=== PATIENT | female | born 1965 | race American Indian/Alaskan Native ===

== ENCOUNTER 2017-10-02 20:03 | Inpatient (IN) | payer OTHER ==
[2017-10-02] MEDS ORDERED: NACL 0.9% 500 ML 500 ML IV ONE (20:11)
[2017-10-02] MEDS ORDERED: NACL 0.9% 1000 ML 2,000 ML IV ONE (20:39)
[2017-10-02] MEDS ORDERED: ZOVIRAX 800 MG in NACL 0.9% 100 ML IV STA (20:40)
[2017-10-02] MEDS ORDERED: DECADRON IV ONE (20:40)
[2017-10-02] MEDS ORDERED: VANCOMYCIN VIAL IV ONE (20:40)
[2017-10-02] MEDS ORDERED: cefTRIAXone 2 GM in NACL 0.9% 20 ML IV ONE (20:40)
[2017-10-02] MEDS ORDERED: ATIVAN IV ONE (20:40)
--- NOTE | 2017-10-02 20:43 | Emergency Department Report ---
ED General Adult HPI - General Chief complaint: Fever Stated complaint: AMS Time Seen by Provider: 10/02/17 20:32 Source: EMS (ems notes not available at time of chart dictation), RN notes reviewed Mode of arrival: Stretcher Limitations: Altered Mental Status - History of Present Illness Initial comments: This is a 52-year-old female, unknown to this provider previously, brought to the hospital by EMS for complaint of altered mental status. EMS staff not available for history. No family available for history or collateral information. Patient altered, he cannot describe exacerbating or relieving factors. The patient is awake, does not speak, does not follow commands, and occasionally moans when she is examined. Medications include lorazepam and Risperdal. -: unknown Radiation: other (per hpi) Quality: other (per hpi) Consistency: other (per hpi) Improves with: other (per hpi) Worsens with: other (per hpi) Associated Symptoms: other (per hpi) Treatments Prior to Arrival: other (per hpi) - Related Data Home Medications Medication Instructions Recorded Confirmed Last Taken LORazepam [Ativan] 1 mg PO TID 10/02/17 10/02/17 Unknown risperiDONE [Risperdal] 2 mg PO BID 10/02/17 10/02/17 Unknown Allergies Allergy/AdvReac Type Severity Reaction Status Date / Time Unable to Assess Allergy Unverified 10/02/17 20:11 ED Review of Systems ROS: Stated complaint: AMS Other details as noted in HPI Comment: Unobtainable due to pts medical conditions ED Past Medical Hx - Past Medical History Hx Psychiatric Treatment: Yes (schizephronia, bipolar) - Surgical History Past Surgical History?: No - Social History Smoking Status: Never Smoker - Medications Home Medications: Home Medications Medication Instructions Recorded Confirmed Last Taken Type LORazepam [Ativan] 1 mg PO TID 10/02/17 10/02/17 Unknown History risperiDONE [Risperdal] 2 mg PO BID 10/02/17 10/02/17 Unknown History ED Physical Exam - General Limitations: Altered Mental Status General appearance: lethargic - Head Head exam: Present: atraumatic, normocephalic - Eye Eye exam: Present: PERRL - ENT ENT exam: Present: mucous membranes dry - Neck Neck exam: Present: normal inspection. Absent: tenderness, meningismus - Respiratory Respiratory exam: Absent: respiratory distress, wheezes, rales, rhonchi, stridor - Cardiovascular Cardiovascular Exam: Present: normal rhythm, tachycardia, normal heart sounds - GI/Abdominal GI/Abdominal exam: Present: soft, normal bowel sounds. Absent: distended, tenderness, guarding, rebound, rigid, pulsatile mass - Rectal Rectal exam: Present: normal inspection - Extremities Exam Extremities exam: Absent: normal inspection, tenderness, pedal edema, calf tenderness, other (compartments are soft. 2+ pulses noted in the upper, lower extremities. There is no clonus in the lower extremities. There is hyperreflexia in the upper and lower extremities. On the left lateral thigh, proximally, there is an area of tenderness and erythema, 4 x 6 cm, possible induration, no obvious abscess or fluctuance) ED Course Vital Signs 10/02/17 10/02/17 10/02/17 19:58 20:00 20:06 Temperature 99.9 F H Temperature [ Intra-Procedure ] Temperature [ Post-Procedure] Temperature [ Pre-Procedure] Pulse Rate 137 H 138 H 146 H Pulse Rate [ Intra-Procedure ] Pulse Rate [ Post-Procedure] Pulse Rate [Pre -Procedure] Respiratory 19 14 24 Rate Respiratory Rate [Intra- Procedure] Respiratory Rate [Post- Procedure] Respiratory Rate [Pre- Procedure] Blood Pressure 156/105 142/112 Blood Pressure [Intra- Procedure] Blood Pressure [Pre-Procedure] O2 Sat by Pulse Oximetry O2 Sat by Pulse Oximetry [ Intra-Procedure ] O2 Sat by Pulse Oximetry [Post -Procedure] O2 Sat by Pulse Oximetry [Pre- Procedure] 10/02/17 10/02/17 10/02/17 20:10 20:15 20:30 Temperature Temperature [ Intra-Procedure ] Temperature [ Post-Procedure] Temperature [ Pre-Procedure] Pulse Rate 132 H 135 H Pulse Rate [ Intra-Procedure ] Pulse Rate [ Post-Procedure] Pulse Rate [Pre -Procedure] Respiratory 22 15 15 Rate Respiratory Rate [Intra- Procedure] Respiratory Rate [Post- Procedure] Respiratory Rate [Pre- Procedure] Blood Pressure 159/100 159/98 Blood Pressure [Intra- Procedure] Blood Pressure [Pre-Procedure] O2 Sat by Pulse Oximetry O2 Sat by Pulse Oximetry [ Intra-Procedure ] O2 Sat by Pulse Oximetry [Post -Procedure] O2 Sat by Pulse Oximetry [Pre- Procedure] 10/02/17 10/02/17 10/02/17 20:40 20:45 21:00 Temperature Temperature [ Intra-Procedure ] Temperature [ Post-Procedure] Temperature [ Pre-Procedure] Pulse Rate 135 H 138 H Pulse Rate [ Intra-Procedure ] Pulse Rate [ Post-Procedure] Pulse Rate [Pre -Procedure] Respiratory 13 13 Rate Respiratory Rate [Intra- Procedure] Respiratory Rate [Post- Procedure] Respiratory Rate [Pre- Procedure] Blood Pressure 134/94 127/92 Blood Pressure [Intra- Procedure] Blood Pressure [Pre-Procedure] O2 Sat by Pulse 98 Oximetry O2 Sat by Pulse Oximetry [ Intra-Procedure ] O2 Sat by Pulse Oximetry [Post -Procedure] O2 Sat by Pulse Oximetry [Pre- Procedure] 10/02/17 10/02/17 10/02/17 21:10 21:15 21:43 Temperature 98.4 F Temperature [ Intra-Procedure ] Temperature [ Post-Procedure] Temperature [ Pre-Procedure] Pulse Rate 140 H Pulse Rate [ Intra-Procedure ] Pulse Rate [ Post-Procedure] Pulse Rate [Pre -Procedure] Respiratory 18 Rate Respiratory Rate [Intra- Procedure] Respiratory Rate [Post- Procedure] Respiratory Rate [Pre- Procedure] Blood Pressure 133/97 Blood Pressure [Intra- Procedure] Blood Pressure [Pre-Procedure] O2 Sat by Pulse 100 100 Oximetry O2 Sat by Pulse Oximetry [ Intra-Procedure ] O2 Sat by Pulse Oximetry [Post -Procedure] O2 Sat by Pulse Oximetry [Pre- Procedure] 10/02/17 10/02/17 10/02/17 22:45 22:57 23:01 Temperature Temperature [ Intra-Procedure ] Temperature [ Post-Procedure] Temperature [ 98.4 F Pre-Procedure] Pulse Rate 141 H 140 H Pulse Rate [ Intra-Procedure ] Pulse Rate [ Post-Procedure] Pulse Rate [Pre 145 H -Procedure] Respiratory 12 19 Rate Respiratory Rate [Intra- Procedure] Respiratory Rate [Post- Procedure] Respiratory 16 Rate [Pre- Procedure] Blood Pressure 132/90 117/68 Blood Pressure [Intra- Procedure] Blood Pressure 132/90 [Pre-Procedure] O2 Sat by Pulse Oximetry O2 Sat by Pulse Oximetry [ Intra-Procedure ] O2 Sat by Pulse Oximetry [Post -Procedure] O2 Sat by Pulse 100 Oximetry [Pre- Procedure] 10/02/17 10/02/17 10/02/17 23:05 23:10 23:15 Temperature Temperature [ 98.2 F 98.2 F 98.2 F Intra-Procedure ] Temperature [ Post-Procedure] Temperature [ Pre-Procedure] Pulse Rate 136 H Pulse Rate [ 132 H 129 H 131 H Intra-Procedure ] Pulse Rate [ Post-Procedure] Pulse Rate [Pre -Procedure] Respiratory 13 Rate Respiratory 13 13 14 Rate [Intra- Procedure] Respiratory Rate [Post- Procedure] Respiratory Rate [Pre- Procedure] Blood Pressure 131/84 Blood Pressure 123/68 112/58 131/84 [Intra- Procedure] Blood Pressure [Pre-Procedure] O2 Sat by Pulse Oximetry O2 Sat by Pulse 100 100 100 Oximetry [ Intra-Procedure ] O2 Sat by Pulse Oximetry [Post -Procedure] O2 Sat by Pulse Oximetry [Pre- Procedure] 10/02/17 10/02/17 10/02/17 23:30 23:43 23:45 Temperature Temperature [ Intra-Procedure ] Temperature [ 98.4 F Post-Procedure] Temperature [ Pre-Procedure] Pulse Rate 122 H 122 H 122 H Pulse Rate [ Intra-Procedure ] Pulse Rate [ 122 H Post-Procedure] Pulse Rate [Pre -Procedure] Respiratory 12 15 15 Rate Respiratory Rate [Intra- Procedure] Respiratory 13 Rate [Post- Procedure] Respiratory Rate [Pre- Procedure] Blood Pressure 123/71 106/66 107/65 Blood Pressure [Intra- Procedure] Blood Pressure [Pre-Procedure] O2 Sat by Pulse Oximetry O2 Sat by Pulse Oximetry [ Intra-Procedure ] O2 Sat by Pulse 100 Oximetry [Post -Procedure] O2 Sat by Pulse Oximetry [Pre- Procedure] 10/03/17 10/03/17 10/03/17 00:01 00:16 00:31 Temperature Temperature [ Intra-Procedure ] Temperature [ Post-Procedure] Temperature [ Pre-Procedure] Pulse Rate 118 H 128 H 121 H Pulse Rate [ Intra-Procedure ] Pulse Rate [ Post-Procedure] Pulse Rate [Pre -Procedure] Respiratory 12 17 12 Rate Respiratory Rate [Intra- Procedure] Respiratory Rate [Post- Procedure] Respiratory Rate [Pre- Procedure] Blood Pressure 120/81 120/81 129/85 Blood Pressure [Intra- Procedure] Blood Pressure [Pre-Procedure] O2 Sat by Pulse Oximetry O2 Sat by Pulse Oximetry [ Intra-Procedure ] O2 Sat by Pulse Oximetry [Post -Procedure] O2 Sat by Pulse Oximetry [Pre- Procedure] 10/03/17 00:45 Temperature 97.5 F L Temperature [ Intra-Procedure ] Temperature [ Post-Procedure] Temperature [ Pre-Procedure] Pulse Rate 123 H Pulse Rate [ Intra-Procedure ] Pulse Rate [ Post-Procedure] Pulse Rate [Pre -Procedure] Respiratory 11 L Rate Respiratory Rate [Intra- Procedure] Respiratory Rate [Post- Procedure] Respiratory Rate [Pre- Procedure] Blood Pressure 122/73 Blood Pressure [Intra- Procedure] Blood Pressure [Pre-Procedure] O2 Sat by Pulse 100 Oximetry O2 Sat by Pulse Oximetry [ Intra-Procedure ] O2 Sat by Pulse Oximetry [Post -Procedure] O2 Sat by Pulse Oximetry [Pre- Procedure] - Reevaluation(s) Reevaluation #1: 10/02/17 22:21 Differential diagnosis, including not limited to: Pneumonia, bacteremia, intra- abdominal infection, myositis, cellulitis, urinary tract infection, neuroleptic malignant syndrome, dehydration, rhabdomyolysis Assessment and plan: 52-year-old female apparently on Risperdal, with hyperreflexia, hypernatremia, tachycardia, leukocytosis, concerning for bacteremic infection versus side effect of medication. The patient will be aggressively treated for all of the aforementioned. No obvious source of infection is elucidated at this time, no family is available at this time for collateral information or history, given altered mental status leukocytosis and tachycardia, the patient will be treated empirically for community-acquired meningitis and encephalitis, and she will receive administrative consent from this provider for both a spinal tap and moderate sedation to acquire CSF. I will also discuss with the [place] [facility]. Nursing staff initially contacted them for recommendations, and the recommendations are appreciated. It is mild pain at the patient should have broad-spectrum antibiotics until bacteremia and meningitis can be ruled out. Reevaluation #2: 10/02/17 23:26 Patient is found to be hypernatremic, dehydrated, hypermagnesemic, and in rhabdomyolysis with a CK of 6000. CT scan of the brain is negative, CT scan of the abdomen and pelvis is negative, the case is rediscussed with the [place] [facility], Mr. Decker Giacomodorothy... [facility] agrees that neuroleptic malignant syndrome is the most likely diagnosis. They do not recommend bromocriptine at this time. They do recommend Ativan, fluids and supportive care. They will follow in consultation and as needed. Critical care physician on-call was paged. The hospital physician on callto arrange admission. Reevaluation #3: 10/02/17 23:31 d/w Dr Walsh, she agrees with placement to the intensive care unit. She will follow in consultation. Reevaluation #4: 10/02/17 23:36 dr irving accepts to her service - Lumbar Puncture Consent Obtained: emergent situation Time Out Performed: Yes Indication for Procedure: change in mental status Patient Position: left lateral decubitus Skin Prep: Povidone-Iodine 1% Local Anesthetic Used: Lidocaine 1% Amount of anesthesia used (mls): 10 Spinal Needle Gauge: Other (18 g) Spinal Needle Length: 3.5in Interspace Used: L4-L5 Fluid Initially Obtained: clear Complications: none Patient Tolerated Procedure: well - Moderate Sedation Indications: diagnostic imaging proced ASA Class: III Mallampati Airway Score: 2 Preparation: playground monitor applied, pulse oximeter, capnometry used, supplemental O2 applied, reversal agents at bedside, suction/airway equipment at bedside, IV secured IV Propofol Dose (mgs): 50 Complications: none Patient Tolerated Procedure: well Additional Comments: sedation time from 11 pm to 1113 pm. ED Medical Decision Making - Lab Data Result diagrams: 10/05/17 05:23 10/05/17 05:23 Vital Signs 10/02/17 10/02/17 10/02/17 19:58 20:00 20:06 Temperature 99.9 F H Pulse Rate 137 H 138 H 146 H Respiratory 19 14 24 Rate Blood Pressure 156/105 142/112 O2 Sat by Pulse Oximetry 10/02/17 10/02/17 10/02/17 20:10 20:15 20:30 Temperature Pulse Rate 132 H 135 H Respiratory 22 15 15 Rate Blood Pressure 159/100 159/98 O2 Sat by Pulse Oximetry 10/02/17 10/02/17 10/02/17 20:40 20:45 21:00 Temperature Pulse Rate 135 H 138 H Respiratory 13 13 Rate Blood Pressure 134/94 127/92 O2 Sat by Pulse 98 Oximetry 10/02/17 10/02/17 10/02/17 21:10 21:15 21:43 Temperature 98.4 F Pulse Rate 140 H Respiratory 18 Rate Blood Pressure 133/97 O2 Sat by Pulse 100 100 Oximetry Lab Results 10/02/17 10/02/17 10/02/17 Range/Units 20:05 20:26 20:26 WBC 17.1 H (4.5-11.0) K/mm3 RBC 4.19 (3.65-5.03) M/mm3 Hgb 12.9 (10.1-14.3) gm/dl Hct 39.5 (30.3-42.9) % MCV 94 (79-97) fl MCH 31 (28-32) pg MCHC 33 (30-34) % RDW 12.9 L (13.2-15.2) % Plt Count 475 H (140-440) K/mm3 Lymph % (Auto) 7.7 L (13.4-35.0) % [place] % (Auto) 7.6 H (0.0-7.3) % Eos % (Auto) 0.0 (0.0-4.3) % Baso % (Auto) 0.3 (0.0-1.8) % Lymph # 1.3 (1.2-5.4) K/mm3 [place] # 1.3 H (0.0-0.8) K/mm3 Eos # 0.0 (0.0-0.4) K/mm3 Baso # 0.0 (0.0-0.1) K/mm3 Seg Neutrophils % 84.4 H (40.0-70.0) % Seg Neutrophils # 14.5 H (1.8-7.7) K/mm3 ESR (0-20) mm/Hr PT 15.4 H (12.2-14.9) Sec. INR 1.16 H (0.87-1.13) VBG pH (7.320-7.420) Sodium (137-145) mmol/L Potassium (3.6-5.0) mmol/L Chloride (98-107) mmol/L Carbon Dioxide (22-30) mmol/L Anion Gap mmol/L BUN (7-17) mg/dL Creatinine (0.7-1.2) mg/dL Estimated GFR ml/min BUN/Creatinine Ratio % Glucose (65-100) mg/dL Lactic Acid (0.7-2.0) mmol/L Calcium (8.4-10.2) mg/dL Magnesium (1.7-2.3) mg/dL Total Bilirubin (0.1-1.2) mg/dL AST (5-40) units/L ALT (7-56) units/L Alkaline Phosphatase (35-129) units/L Total Creatine Kinase (30-135) units/L C-Reactive Protein (0.00-1.30) mg/dL Total Protein (6.3-8.2) g/dL Albumin (3.9-5) g/dL Albumin/Globulin Ratio % Urine Color Yellow (Yellow) Urine Turbidity Clear (Clear) Urine pH 5.0 (5.0-7.0) Ur Specific [place]urt 1.028 (1.003-1.030) Urine Protein >500 (Negative) mg/dL Urine Glucose (UA) 50 (Negative) mg/dL Urine Ketones 20 (Negative) mg/dL Urine Blood Mod (Negative) Urine Nitrite Neg (Negative) Urine Bilirubin Neg (Negative) Urine Urobilinogen < 2.0 (<2.0) mg/dL Ur Leukocyte Esterase Neg (Negative) Urine WBC (Auto) 8.0 H (0.0-6.0) /HPF Urine RBC (Auto) 3.0 (0.0-6.0) /HPF U Epithel Cells (Auto) 1.0 (0-13.0) /HPF Urine Bacteria (Auto) 1+ (Negative) /HPF Granular Casts 3 /LPF Urine Mucus 2+ /HPF Salicylates (2.8-20.0) mg/dL Acetaminophen (10.0-30.0) ug/mL [place] (0.0-1.2) mmol/L 10/02/17 10/02/17 10/02/17 Range/Units 20:26 20:26 20:26 WBC (4.5-11.0) K/mm3 RBC (3.65-5.03) M/mm3 Hgb (10.1-14.3) gm/dl Hct (30.3-42.9) % MCV (79-97) fl MCH (28-32) pg MCHC (30-34) % RDW (13.2-15.2) % Plt Count (140-440) K/mm3 Lymph % (Auto) (13.4-35.0) % [place] % (Auto) (0.0-7.3) % Eos % (Auto) (0.0-4.3) % Baso % (Auto) (0.0-1.8) % Lymph # (1.2-5.4) K/mm3 [place] # (0.0-0.8) K/mm3 Eos # (0.0-0.4) K/mm3 Baso # (0.0-0.1) K/mm3 Seg Neutrophils % (40.0-70.0) % Seg Neutrophils # (1.8-7.7) K/mm3 ESR (0-20) mm/Hr PT (12.2-14.9) Sec. INR (0.87-1.13) VBG pH 7.387 (7.320-7.420) Sodium 151 H (137-145) mmol/L Potassium 4.2 (3.6-5.0) mmol/L Chloride 112.5 H (98-107) mmol/L Carbon Dioxide 21 L (22-30) mmol/L Anion Gap 22 mmol/L BUN 37 H (7-17) mg/dL Creatinine 1.2 (0.7-1.2) mg/dL Estimated GFR 57 ml/min BUN/Creatinine Ratio 31 % Glucose 159 H (65-100) mg/dL Lactic Acid 3.10 H* (0.7-2.0) mmol/L Calcium 9.3 (8.4-10.2) mg/dL Magnesium (1.7-2.3) mg/dL Total Bilirubin 0.50 (0.1-1.2) mg/dL AST 113 H (5-40) units/L ALT 43 (7-56) units/L Alkaline Phosphatase 76 (35-129) units/L Total Creatine Kinase (30-135) units/L C-Reactive Protein (0.00-1.30) mg/dL Total Protein 7.3 (6.3-8.2) g/dL Albumin 4.0 (3.9-5) g/dL Albumin/Globulin Ratio 1.2 % Urine Color (Yellow) Urine Turbidity (Clear) Urine pH (5.0-7.0) Ur Specific [place] (1.003-1.030) Urine Protein (Negative) mg/dL Urine Glucose (UA) (Negative) mg/dL Urine Ketones (Negative) mg/dL Urine Blood (Negative) Urine Nitrite (Negative) Urine Bilirubin (Negative) Urine Urobilinogen (<2.0) mg/dL Ur Leukocyte Esterase (Negative) Urine WBC (Auto) (0.0-6.0) /HPF Urine RBC (Auto) (0.0-6.0) /HPF U Epithel Cells (Auto) (0-13.0) /HPF Urine Bacteria (Auto) (Negative) /HPF Granular Casts /LPF Urine Mucus /HPF Salicylates (2.8-20.0) mg/dL Acetaminophen (10.0-30.0) ug/mL [place] (0.0-1.2) mmol/L 10/02/17 10/02/17 10/02/17 Range/Units 20:53 20:53 20:53 WBC (4.5-11.0) K/mm3 RBC (3.65-5.03) M/mm3 Hgb (10.1-14.3) gm/dl Hct (30.3-42.9) % MCV (79-97) fl MCH (28-32) pg MCHC (30-34) % RDW (13.2-15.2) % Plt Count (140-440) K/mm3 Lymph % (Auto) (13.4-35.0) % [place] % (Auto) (0.0-7.3) % Eos % (Auto) (0.0-4.3) % Baso % (Auto) (0.0-1.8) % Lymph # (1.2-5.4) K/mm3 [place] # (0.0-0.8) K/mm3 Eos # (0.0-0.4) K/mm3 Baso # (0.0-0.1) K/mm3 Seg Neutrophils % (40.0-70.0) % Seg Neutrophils # (1.8-7.7) K/mm3 ESR 32 (0-20) mm/Hr PT (12.2-14.9) Sec. INR (0.87-1.13) VBG pH (7.320-7.420) Sodium (137-145) mmol/L Potassium (3.6-5.0) mmol/L Chloride (98-107) mmol/L Carbon Dioxide (22-30) mmol/L Anion Gap mmol/L BUN (7-17) mg/dL Creatinine (0.7-1.2) mg/dL Estimated GFR ml/min BUN/Creatinine Ratio % Glucose (65-100) mg/dL Lactic Acid (0.7-2.0) mmol/L Calcium (8.4-10.2) mg/dL Magnesium 2.40 H (1.7-2.3) mg/dL Total Bilirubin (0.1-1.2) mg/dL AST (5-40) units/L ALT (7-56) units/L Alkaline Phosphatase (35-129) units/L Total Creatine Kinase 5716 H (30-135) units/L C-Reactive Protein 0.90 (0.00-1.30) mg/dL Total Protein (6.3-8.2) g/dL Albumin (3.9-5) g/dL Albumin/Globulin Ratio % Urine Color (Yellow) Urine Turbidity (Clear) Urine pH (5.0-7.0) Ur Specific [place] (1.003-1.030) Urine Protein (Negative) mg/dL Urine Glucose (UA) (Negative) mg/dL Urine Ketones (Negative) mg/dL Urine Blood (Negative) Urine Nitrite (Negative) Urine Bilirubin (Negative) Urine Urobilinogen (<2.0) mg/dL Ur Leukocyte Esterase (Negative) Urine WBC (Auto) (0.0-6.0) /HPF Urine RBC (Auto) (0.0-6.0) /HPF U Epithel Cells (Auto) (0-13.0) /HPF Urine Bacteria (Auto) (Negative) /HPF Granular Casts /LPF Urine Mucus /HPF Salicylates < 0.3 L (2.8-20.0) mg/dL Acetaminophen (10.0-30.0) ug/mL [place] 0.1 (0.0-1.2) mmol/L 10/02/17 10/02/17 Range/Units 20:53 21:17 WBC (4.5-11.0) K/mm3 RBC (3.65-5.03) M/mm3 Hgb (10.1-14.3) gm/dl Hct (30.3-42.9) % MCV (79-97) fl MCH (28-32) pg MCHC (30-34) % RDW (13.2-15.2) % Plt Count (140-440) K/mm3 Lymph % (Auto) (13.4-35.0) % [place] % (Auto) (0.0-7.3) % Eos % (Auto) (0.0-4.3) % Baso % (Auto) (0.0-1.8) % Lymph # (1.2-5.4) K/mm3 [place] # (0.0-0.8) K/mm3 Eos # (0.0-0.4) K/mm3 Baso # (0.0-0.1) K/mm3 Seg Neutrophils % (40.0-70.0) % Seg Neutrophils # (1.8-7.7) K/mm3 ESR (0-20) mm/Hr PT (12.2-14.9) Sec. INR (0.87-1.13) VBG pH (7.320-7.420) Sodium (137-145) mmol/L Potassium (3.6-5.0) mmol/L Chloride (98-107) mmol/L Carbon Dioxide (22-30) mmol/L Anion Gap mmol/L BUN (7-17) mg/dL Creatinine (0.7-1.2) mg/dL Estimated GFR ml/min BUN/Creatinine Ratio % Glucose (65-100) mg/dL Lactic Acid 1.80 (0.7-2.0) mmol/L Calcium (8.4-10.2) mg/dL Magnesium (1.7-2.3) mg/dL Total Bilirubin (0.1-1.2) mg/dL AST (5-40) units/L ALT (7-56) units/L Alkaline Phosphatase (35-129) units/L Total Creatine Kinase (30-135) units/L C-Reactive Protein (0.00-1.30) mg/dL Total Protein (6.3-8.2) g/dL Albumin (3.9-5) g/dL Albumin/Globulin Ratio % Urine Color (Yellow) Urine Turbidity (Clear) Urine pH (5.0-7.0) Ur Specific [place] (1.003-1.030) Urine Protein (Negative) mg/dL Urine Glucose (UA) (Negative) mg/dL Urine Ketones (Negative) mg/dL Urine Blood (Negative) Urine Nitrite (Negative) Urine Bilirubin (Negative) Urine Urobilinogen (<2.0) mg/dL Ur Leukocyte Esterase (Negative) Urine WBC (Auto) (0.0-6.0) /HPF Urine RBC (Auto) (0.0-6.0) /HPF U Epithel Cells (Auto) (0-13.0) /HPF Urine Bacteria (Auto) (Negative) /HPF Granular Casts /LPF Urine Mucus /HPF Salicylates (2.8-20.0) mg/dL Acetaminophen < 5.0 L (10.0-30.0) ug/mL [place] (0.0-1.2) mmol/L - EKG Data -: EKG Interpreted by Me EKG shows normal: sinus rhythm Rate: tachycardia - EKG Data When compared to previous EKG there are: previous EKG unavailable 10/02/17 22:21 Sinus tachycardia, normal axis, motion artifact, QTC prolonged, abnormal EKG, not a STEMI - Radiology Data Radiology results: report reviewed, image reviewed X-ray of the chest is negative for acute disease Critical Care Time: Yes Critical care time in (mins) excluding proc time.: 60 Critical care attestation.: If time is entered above; I have spent that time in minutes in the direct care of this critically ill patient, excluding procedure time. Critical Care Time: Critical care time includes multiple bedside evaluations, interpretation of laboratory studies, radiology studies, multiple and frequent bedside reassessments, and time spent discussing care with multiple consulting services , including the [place] [facility], and the hospital medicine service. This does not include procedure time. ED Disposition Clinical Impression: SIRS (systemic inflammatory response syndrome), Encephalopathy Rhabdomyolysis Qualifiers: Rhabdomyolysis type: non-traumatic Qualified Code(s): M62.82 - Rhabdomyolysis Disposition: -09 OP ADMIT IP TO THIS HOSP Is pt being admited?: Yes Condition: Fair
[2017-10-02 20:47] LABS: Basophils % (Auto) 0.3 % (0.0-1.8); Hematocrit 39.5 % (30.3-42.9); Hemoglobin 12.9 gm/dl (10.1-14.3); Lymphocytes # (Auto) 1.3 K/mm3 (1.2-5.4); Lymphocytes % (Auto) 7.7 % (13.4-35.0); Mean Corpuscular HGB Conc 33 % (30-34); Mean Corpuscular Hemoglobin 31 pg (28-32); Mean Corpuscular Volume 94 fl (79-97); Monocytes # (Auto) 1.3 K/mm3 (0.0-0.8); Monocytes % (Auto) 7.6 % (0.0-7.3); Platelet Count 475 K/mm3 (140-440); Red Blood Count 4.19 M/mm3 (3.65-5.03); Red Cell Distribution Width 12.9 % (13.2-15.2)
[2017-10-02 20:50] LABS: Bacteria,Urine 1+ /HPF (Negative); Bilirubin,Urine NEG (Negative); Blood,Urine MOD (Negative); Color,Urine Yellow (Yellow); Granular Casts,Urine 3 /LPF; Mucus,Urine 2+ /HPF; Urobilinogen,Urine < 2.0 mg/dL (<2.0)
[2017-10-02 20:53] LABS: Protein,Urine >500 mg/dL (Negative)
[2017-10-02 20:57] LABS: INR 1.16 (0.87-1.13)
[2017-10-02] MEDS ORDERED: VANCOMYCIN PHARMACY TO DOSE IV SCH (21:00)
[2017-10-02] MEDS ORDERED: VANCOMYCIN 1,250 MG in NACL 0.9% 250ML 250 ML IV ONE (21:00)
[2017-10-02 21:05] LABS: Calcium 9.3 mg/dL (8.4-10.2)
[2017-10-02 21:27] LABS: C-Reactive Protein 0.9 mg/dL (0.00-1.30)
--- NOTE | 2017-10-02 21:41 | XRay Report ---
FINAL REPORT PROCEDURE: Chest. TECHNIQUE: Portable AP view. HISTORY: Possible sepsis. COMPARISON: No prior studies are available for comparison. FINDINGS: The heart and mediastinum appear normal. The lungs are clear and well expanded. There are no pleural effusions. The soft tissues and regional skeleton are unremarkable. IMPRESSION: Negative portable chest.
[2017-10-02] MEDS ORDERED: DIPRIVAN 10 MG/ML IV ONE ×2 (21:57→23:47)
[2017-10-02] MEDS ORDERED: XYLOCAINE 1% 20 mL ONE (21:59)
[2017-10-02] MEDS ORDERED: SODIUM CHLORIDE FLUSH SYRINGE 10 ML IV PRN (22:00)
[2017-10-02] MEDS ORDERED: XYLOCAINE 1% 20 mL INFILTRATI ONE (22:16)
--- NOTE | 2017-10-02 22:29 | Cat Scan Report ---
FINAL REPORT PROCEDURE: CT head without contrast. TECHNIQUE: Computerized tomography of the head was performed without contrast material. HISTORY: Altered mental status. COMPARISON: No prior studies are available for comparison. FINDINGS: There is mild cerebral atrophy. The mejias matter and white matter appear normal. There are no mass lesions. There is no intracranial hemorrhage. The calvarium appears intact. 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 The paranasal sinuses and visualized mastoid air cells are clear. IMPRESSION: Normal study of the brain for age.
--- NOTE | 2017-10-02 23:16 | Cat Scan Report ---
FINAL REPORT PROCEDURE: CT abdomen and pelvis without contrast. TECHNIQUE: Computerized axial tomography of the abdomen and pelvis was performed without intravenous contrast. This study is performed without intravascular contrast material and its sensitivity for abdominal and pelvic pathology, including neoplasms, inflammation, abscess, free fluid, thrombosis, arterial dissection and infarction, is reduced compared with a contrast enhanced study. HISTORY: Altered mental status. COMPARISON: No prior studies are available for comparison. FINDINGS: The lung bases are clear. There are no pleural effusions. The heart size is normal. The liver, pancreas and spleen are grossly normal. The gallbladder is present. The adrenal glands are not enlarged. Both kidneys appear normal in size and configuration. The abdominal aorta has a normal caliber. There is no retroperitoneal adenopathy. The unopacified gastrointestinal tract is unremarkable. The appendix is not definitely visualized. The bladder is unremarkable. The uterus appears enlarged. There are some calcifications in the uterus suggesting fibroid disease. The regional skeleton appears intact. IMPRESSION: Enlarged uterus with probable leiomyomas. No definite signs of acute disease in the abdomen or pelvis.
--- NOTE | 2017-10-02 23:48 | History and Physical Report ---
History of Present Illness Date of examination: 10/02/17 History of present illness: 52 year old woman with bipolar, schizophrenia was brought to the ER for evaluation of altered mental status. No further history is available. A lumbar puncture was done and the patient was treat emperically for meningitis and possible NMS, however poison control recommend supportive care. A ROS is unobtainable EMS reported that patient is from a [facility], unknown baseline mental status PAST MEDICAL HISTORY: hypertension, diabetes, hyperlipidemia, congestive heart failure PAST SURGICAL HISTORY: Aicd, back, bowel resection, b/l feet SOCIAL HISTORY: Denies tobacco, alcohol, drugs FAMILY HISTORY: Hypertension, diabetes Medications and Allergies Allergies Allergy/AdvReac Type Severity Reaction Status Date / Time Unable to Assess Allergy Unverified 10/02/17 20:11 Home Medications Medication Instructions Recorded Confirmed Last Taken Type LORazepam [Ativan] 1 mg PO TID 10/02/17 10/02/17 Unknown History risperiDONE [Risperdal] 2 mg PO BID 10/02/17 10/02/17 Unknown History Active Meds: Active Medications Sodium Chloride (Sodium Chloride Flush Syringe 10 Ml) 10 ml IV PRN PRN PRN Reason: LINE FLUSH Vancomycin HCl (Vancomycin Pharmacy To Dose) 1 each IV PKCONSULT LEONIDES Exam - Physical Exam Narrative exam: Gen. appearance: Patient lying in bed, no apparent distress HEENT: Normocephalic, atraumatic, pupils equally round and reactive to light, pinpoint, unable to do extraocular movement, and no sclericterus,. No JVD or thyromegaly or nodule,neck supple, no carotid bruit ,mucous membranes moist, no exudate or erythema Heart: S1, S2, regular rate and rhythm Lungs: Clear anteriorly bilaterally, breathing comfortable Abdomen: Positive bowel sounds, soft, nondistended, no organomegaly Extremity:no edema, cyanosis, clubbing Neuro: sedated - Constitutional Vitals: Temp Pulse Resp BP Pulse Ox 98.4 F 122 H 13 131/84 100 10/02/17 23:30 10/02/17 23:30 10/02/17 23:30 10/02/17 23:15 10/02/17 23:30 Results - Labs CBC & Chem 7: 10/02/17 20:26 10/02/17 20:26 Labs: Abnormal lab results 10/02/17 10/02/17 10/02/17 Range/Units 20:05 20:26 20:26 WBC 17.1 H (4.5-11.0) K/mm3 RDW 12.9 L (13.2-15.2) % Plt Count 475 H (140-440) K/mm3 Lymph % (Auto) 7.7 L (13.4-35.0) % [place] % (Auto) 7.6 H (0.0-7.3) % [place] # 1.3 H (0.0-0.8) K/mm3 Seg Neutrophils % 84.4 H (40.0-70.0) % Seg Neutrophils # 14.5 H (1.8-7.7) K/mm3 PT 15.4 H (12.2-14.9) Sec. INR 1.16 H (0.87-1.13) POC ABG pH (7.35-7.45) POC ABG pCO2 (35-45) Sodium (137-145) mmol/L Chloride (98-107) mmol/L Carbon Dioxide (22-30) mmol/L BUN (7-17) mg/dL Glucose (65-100) mg/dL Lactic Acid (0.7-2.0) mmol/L Magnesium (1.7-2.3) mg/dL AST (5-40) units/L Total Creatine Kinase (30-135) units/L Urine WBC (Auto) 8.0 H (0.0-6.0) /HPF Salicylates (2.8-20.0) mg/dL Acetaminophen (10.0-30.0) ug/mL 10/02/17 10/02/17 10/02/17 Range/Units 20:26 20:26 20:53 WBC (4.5-11.0) K/mm3 RDW (13.2-15.2) % Plt Count (140-440) K/mm3 Lymph % (Auto) (13.4-35.0) % [place] % (Auto) (0.0-7.3) % [place] # (0.0-0.8) K/mm3 Seg Neutrophils % (40.0-70.0) % Seg Neutrophils # (1.8-7.7) K/mm3 PT (12.2-14.9) Sec. INR (0.87-1.13) POC ABG pH (7.35-7.45) POC ABG pCO2 (35-45) Sodium 151 H (137-145) mmol/L Chloride 112.5 H (98-107) mmol/L Carbon Dioxide 21 L (22-30) mmol/L BUN 37 H (7-17) mg/dL Glucose 159 H (65-100) mg/dL Lactic Acid 3.10 H* (0.7-2.0) mmol/L Magnesium 2.40 H (1.7-2.3) mg/dL AST 113 H (5-40) units/L Total Creatine Kinase 5716 H (30-135) units/L Urine WBC (Auto) (0.0-6.0) /HPF Salicylates (2.8-20.0) mg/dL Acetaminophen (10.0-30.0) ug/mL 10/02/17 10/02/17 10/02/17 Range/Units 20:53 20:53 21:10 WBC (4.5-11.0) K/mm3 RDW (13.2-15.2) % Plt Count (140-440) K/mm3 Lymph % (Auto) (13.4-35.0) % [place] % (Auto) (0.0-7.3) % [place] # (0.0-0.8) K/mm3 Seg Neutrophils % (40.0-70.0) % Seg Neutrophils # (1.8-7.7) K/mm3 PT (12.2-14.9) Sec. INR (0.87-1.13) POC ABG pH 7.460 H (7.35-7.45) POC ABG pCO2 32.3 L (35-45) Sodium (137-145) mmol/L Chloride (98-107) mmol/L Carbon Dioxide (22-30) mmol/L BUN (7-17) mg/dL Glucose (65-100) mg/dL Lactic Acid (0.7-2.0) mmol/L Magnesium (1.7-2.3) mg/dL AST (5-40) units/L Total Creatine Kinase (30-135) units/L Urine WBC (Auto) (0.0-6.0) /HPF Salicylates < 0.3 L (2.8-20.0) mg/dL Acetaminophen < 5.0 L (10.0-30.0) ug/mL - Imaging and Cardiology Chest x-ray: image reviewed Abdominal x-ray: report reviewed CT Scan - head: report reviewed CT scan - pelvis: report reviewed Assessment and Plan Assessment SIRS Encephalopathy Rhabdomyolysis Hypernatremia Bipolar Schizophrenia Plan Admit to medicine Start IV antibiotic, follow cultures Start aggressive IV fluid monitor cardiac enzymes Hold further sedatives for now, s/p propofol and ativan in ER, she is very sedated consult critical care DVT prophalaxis
[2017-10-03 00:05] LABS: Glucose,CSF 94 mg/dL
[2017-10-03 00:25] LABS: Appearance,CSF Clear; Red Blood Cell,CSF 54 /mm3 (0-0); White Blood Cell,CSF 2 /mm3 (1-10)
[2017-10-03] MEDS ORDERED: NACL 0.9% 1000 ML 1,000 ML ONE (00:33)
[2017-10-03] MEDS ORDERED: TYLENOL PO PRN (01:11)
[2017-10-03] MEDS ORDERED: ZOFRAN IV PRN (01:11)
[2017-10-03] MEDS ORDERED: SODIUM CHLORIDE FLUSH SYRINGE 10 ML IV PRN (01:11)
[2017-10-03] MEDS ORDERED: NACL 0.9% 1000 ML 1,000 ML IV ONE (01:14)
[2017-10-03] MEDS ORDERED: NACL 0.9% 1000 ML 1,000 ML IV SCH (02:00)
[2017-10-03 02:15] LABS: Total Cells Counted 7 /mm3
[2017-10-03 02:16] LABS: Basophils CSF 0 %
[2017-10-03 02:17] LABS: Creatine Kinase MB 40.1 ng/mL (0.0-4.0)
[2017-10-03] MEDS: D5/0.45NS 1,000 ML IV SCH ×2 (02:41→09:18)
[2017-10-03] MEDS ORDERED: ZOSYN/NS 3.375GM/50ML 3.375 GM/50 ML BAG IV SCH (04:00)
[2017-10-03 05:25] LABS: Basophils # (Auto) 0.1 K/mm3 (0.0-0.1); Basophils % (Auto) 0.4 % (0.0-1.8); Eosinophils % (Auto) 0.1 % (0.0-4.3); Hemoglobin 11.4 gm/dl (10.1-14.3); Lymphocytes # (Auto) 3.1 K/mm3 (1.2-5.4); Lymphocytes % (Auto) 15.9 % (13.4-35.0); Monocytes # (Auto) 1.8 K/mm3 (0.0-0.8); Monocytes % (Auto) 9.4 % (0.0-7.3)
[2017-10-03 05:39] LABS: Hematocrit 35.3 % (30.3-42.9); Mean Corpuscular HGB Conc 33 % (30-34); Mean Corpuscular Hemoglobin 31 pg (28-32); Mean Corpuscular Volume 94 fl (79-97); Mean Platelet Volume 8.3 fl (6-12); Platelet Count 339 K/mm3 (140-440); Red Blood Count 3.77 M/mm3 (3.65-5.03); Red Cell Distribution Width 12.5 % (13.2-15.2)
[2017-10-03 05:44] LABS: BUN/Creatinine Ratio 36; Blood Urea Nitrogen 25 mg/dL (7-17); Calcium 8.1 mg/dL (8.4-10.2); Hemolysis Index 127
--- NOTE | 2017-10-03 08:43 | Consultation ---
History of Present Illness Consult date: 10/03/17 Requesting physician: BRICE REECE History of present illness: PULMONARY/CCM CONSULT NOTE (Full dictation # [id number]) Please see dictated notes for full details Medications and Allergies Allergies Allergy/AdvReac Type Severity Reaction Status Date / Time Unable to Assess Allergy Unverified 10/02/17 20:11 Home Medications Medication Instructions Recorded Confirmed Last Taken Type LORazepam [Ativan] 1 mg PO TID 10/02/17 10/02/17 Unknown History risperiDONE [Risperdal] 2 mg PO BID 10/02/17 10/02/17 Unknown History Active Meds: Active Medications Acetaminophen (Tylenol) 650 mg PO Q4H PRN PRN Reason: Pain MILD(1-3)/Fever >100.5/[place] Enoxaparin Sodium (Lovenox) 40 mg SUB-Q QDAY@1000 LEONIDES Dextrose/Sodium Chloride (D5/0.45ns) 1,000 mls @ 150 mls/hr IV DIRECT LEONIDES Last Admin: 10/03/17 02:41 Dose: 150 mls/hr Piperacillin Sod/Tazobactam Sod (Zosyn/Ns 3.375gm/50ml) 3.375 gm in 50 mls @ 100 mls/hr IV Q8HR LEONIDES; Protocol Last Infusion: 10/03/17 06:50 Dose: Infused Ondansetron HCl (Zofran) 4 mg IV Q4H PRN PRN Reason: Nausea And Vomiting Sodium Chloride (Sodium Chloride Flush Syringe 10 Ml) 10 ml IV BID LEONIDES Sodium Chloride (Sodium Chloride Flush Syringe 10 Ml) 10 ml IV PRN PRN PRN Reason: LINE FLUSH Physical Examination Vital signs: Vital Signs Pulse Resp 137 H 19 10/02/17 19:58 10/02/17 19:58 Results - Laboratory Findings CBC and BMP: 10/03/17 04:25 10/03/17 04:25 ABG POC ABG pH 7.460 (7.35-7.45) H 10/02/17 21:10 POC ABG pCO2 32.3 (35-45) L 10/02/17 21:10 POC ABG pO2 92 (80-105) 10/02/17 21:10 POC ABG HCO3 23.0 10/02/17 21:10 POC ABG Total CO2 24 10/02/17 21:10 POC ABG O2 Sat 98 10/02/17 21:10 PT/INR, D-dimer PT 15.4 Sec. (12.2-14.9) H 10/02/17 20:26 INR 1.16 (0.87-1.13) H 10/02/17 20:26 Abnormal lab findings: Abnormal Labs 10/02/17 10/02/17 10/02/17 20:05 20:26 20:26 WBC 17.1 H RDW 12.9 L Plt Count 475 H Lymph % (Auto) 7.7 L [place] % (Auto) 7.6 H [place] # 1.3 H Seg Neutrophils % 84.4 H Seg Neutrophils # 14.5 H PT 15.4 H INR 1.16 H POC ABG pH POC ABG pCO2 Sodium Chloride Carbon Dioxide BUN Glucose Lactic Acid Calcium Magnesium AST Total Creatine Kinase CK-MB (CK-2) Urine WBC (Auto) 8.0 H Salicylates Acetaminophen 10/02/17 10/02/17 10/02/17 20:26 20:26 20:53 WBC RDW Plt Count Lymph % (Auto) [place] % (Auto) [place] # Seg Neutrophils % Seg Neutrophils # PT INR POC ABG pH POC ABG pCO2 Sodium 151 H Chloride 112.5 H Carbon Dioxide 21 L BUN 37 H Glucose 159 H Lactic Acid 3.10 H* Calcium Magnesium 2.40 H AST 113 H Total Creatine Kinase 5716 H CK-MB (CK-2) Urine WBC (Auto) Salicylates Acetaminophen 10/02/17 10/02/17 10/02/17 20:53 20:53 21:10 WBC RDW Plt Count Lymph % (Auto) [place] % (Auto) [place] # Seg Neutrophils % Seg Neutrophils # PT INR POC ABG pH 7.460 H POC ABG pCO2 32.3 L Sodium Chloride Carbon Dioxide BUN Glucose Lactic Acid Calcium Magnesium AST Total Creatine Kinase CK-MB (CK-2) Urine WBC (Auto) Salicylates < 0.3 L Acetaminophen < 5.0 L 10/03/17 10/03/17 10/03/17 01:39 04:25 04:25 WBC 19.6 H RDW 12.5 L Plt Count Lymph % (Auto) [place] % (Auto) 9.4 H [place] # 1.8 H Seg Neutrophils % 74.2 H Seg Neutrophils # 14.5 H PT INR POC ABG pH POC ABG pCO2 Sodium 154 H Chloride 118.0 H Carbon Dioxide 21 L BUN 25 H Glucose 117 H Lactic Acid Calcium 8.1 L Magnesium AST Total Creatine Kinase 5392 H CK-MB (CK-2) 40.1 H Urine WBC (Auto) Salicylates Acetaminophen
[2017-10-03] MEDS: LOVENOX SUB-Q SCH (09:15)
[2017-10-03] MEDS: SODIUM CHLORIDE FLUSH SYRINGE 10 ML IV SCH ×2 (09:19→23:22)
--- NOTE | 2017-10-03 09:23 | Progress Note ---
Assessment and Plan Assessment and plan: Per HPI documentation 52 year old woman with bipolar, schizophrenia was brought to the ER for evaluation of altered mental status. No further history is available. A lumbar puncture was done and the patient was treat emperically for meningitis and possible NMS, however poison control recommend supportive care. A ROS is unobtainable EMS reported that patient is from a senior care, unknown baseline mental status Acute Encephalopathy Unkown Etiology * CT brain negative. * R/O Serotonin syndrome-Less likely * Neurology and Pysch consultation. * EEG * lumber puncture serology negative for Bacterial Meningitis * ?Acute cystitis * Await cultures * Increased leukocytosis today could be secondary to steroids but will monitor SIRS * POA, Leukocytosis, Tachycardia, * Continue vancomycin and zosyn D#2 * cxr is negative for acute disease * s/p one dose Acyclovir. Hypernatermia * change to D5W and recheck Mildly elevated CPK.-Possible Mild Rhabdomylysis * EKG on admission-Sinus tachycardia, normal axis, motion artifact, QTC prolonged, abnormal EKG, not a STEMI per ER. Not available for my review Bipolar disorder Usp Resident Schizophrenia * On Respiradone and ativan on MED REC * Resume PRN ativan to prevent withdrawal The high probability of a clinically significant, sudden or life threatening deterioration of the [NEURO] system(s) required my full and direct attention, intervention and personal management. The aggregate critical care time was [35] minutes. This time is in addition to time spent performing reported procedures but includes the following: [X] Data Review and interpretation [X] Patient assessment and monitoring of vital signs [X] Documentation [X] Medication orders and management History Interval history: Patient seen and examined still confused this morning, not following commands. Hospitalist Physical - Physical exam Narrative exam: Gen. appearance: Patient lying in bed, no apparent distress HEENT: Normocephalic, atraumatic, pupils equally round and reactive to light, pinpoint, unable to do extraocular movement, and no sclericterus,. No JVD or thyromegaly or nodule,neck supple, no carotid bruit ,mucous membranes moist, no exudate or erythema Heart: S1, S2, regular rate and rhythm Lungs: Clear anteriorly bilaterally, breathing comfortable Abdomen: Positive bowel sounds, soft, nondistended, no organomegaly Extremity:no edema, cyanosis, clubbing Neuro: sedated - Constitutional Vitals: Temp Pulse Resp BP Pulse Ox 98.5 F 106 H 12 120/78 99 10/03/17 08:00 10/03/17 08:00 10/03/17 08:00 10/03/17 08:00 10/03/17 08:00 Results - Labs CBC & Chem 7: 10/03/17 04:25 10/03/17 04:25 Labs: Laboratory Last Values WBC 19.6 K/mm3 (4.5-11.0) H 10/03/17 04:25 RBC 3.77 M/mm3 (3.65-5.03) 10/03/17 04:25 Hgb 11.4 gm/dl (10.1-14.3) 10/03/17 04:25 Hct 35.3 % (30.3-42.9) 10/03/17 04:25 MCV 94 fl (79-97) 10/03/17 04:25 MCH 31 pg (28-32) 10/03/17 04:25 MCHC 33 % (30-34) 10/03/17 04:25 RDW 12.5 % (13.2-15.2) L 10/03/17 04:25 Plt Count 339 K/mm3 (140-440) 10/03/17 04:25 Lymph % (Auto) 15.9 % (13.4-35.0) 10/03/17 04:25 [place] % (Auto) 9.4 % (0.0-7.3) H 10/03/17 04:25 Eos % (Auto) 0.1 % (0.0-4.3) 10/03/17 04:25 Baso % (Auto) 0.4 % (0.0-1.8) 10/03/17 04:25 Lymph # 3.1 K/mm3 (1.2-5.4) 10/03/17 04:25 [place] # 1.8 K/mm3 (0.0-0.8) H 10/03/17 04:25 Eos # 0.0 K/mm3 (0.0-0.4) 10/03/17 04:25 Baso # 0.1 K/mm3 (0.0-0.1) 10/03/17 04:25 Seg Neutrophils % 74.2 % (40.0-70.0) H 10/03/17 04:25 Seg Neutrophils # 14.5 K/mm3 (1.8-7.7) H 10/03/17 04:25 ESR 32 mm/Hr (0-20) 10/02/17 20:53 PT 15.4 Sec. (12.2-14.9) H 10/02/17 20:26 INR 1.16 (0.87-1.13) H 10/02/17 20:26 POC ABG pH 7.460 (7.35-7.45) H 10/02/17 21:10 POC ABG pCO2 32.3 (35-45) L 10/02/17 21:10 POC ABG pO2 92 (80-105) 10/02/17 21:10 POC ABG HCO3 23.0 10/02/17 21:10 POC ABG Total CO2 24 10/02/17 21:10 POC ABG O2 Sat 98 10/02/17 21:10 POC ABG Base Excess -1 10/02/17 21:10 VBG pH 7.387 (7.320-7.420) 10/02/17 20:26 FiO2 21 % 10/02/17 21:10 Sodium 154 mmol/L (137-145) H 10/03/17 04:25 Potassium 4.2 mmol/L (3.6-5.0) 10/03/17 04:25 Chloride 118.0 mmol/L (98-107) H 10/03/17 04:25 Carbon Dioxide 21 mmol/L (22-30) L 10/03/17 04:25 Anion Gap 19 mmol/L 10/03/17 04:25 BUN 25 mg/dL (7-17) H 10/03/17 04:25 Creatinine 0.7 mg/dL (0.7-1.2) 10/03/17 04:25 Estimated GFR > 60 ml/min 10/03/17 04:25 BUN/Creatinine Ratio 36 % 10/03/17 04:25 Glucose 117 mg/dL (65-100) H 10/03/17 04:25 Lactic Acid 1.30 mmol/L (0.7-2.0) 10/02/17 23:41 Calcium 8.1 mg/dL (8.4-10.2) L 10/03/17 04:25 Magnesium 2.40 mg/dL (1.7-2.3) H 10/02/17 20:53 Total Bilirubin 0.50 mg/dL (0.1-1.2) 10/02/17 20:26 AST 113 units/L (5-40) H 10/02/17 20:26 ALT 43 units/L (7-56) 10/02/17 20:26 Alkaline Phosphatase 76 units/L (35-129) 10/02/17 20:26 Total Creatine Kinase 5392 units/L (30-135) H 10/03/17 01:39 CK-MB (CK-2) 40.1 ng/mL (0.0-4.0) H 10/03/17 01:39 CK-MB (CK-2) Rel Index 0.7 (0-4) 10/03/17 01:39 Troponin T < 0.010 ng/mL (0.00-0.029) 10/03/17 01:39 C-Reactive Protein 0.90 mg/dL (0.00-1.30) 10/02/17 20:53 Total Protein 7.3 g/dL (6.3-8.2) 10/02/17 20: Albumin 4.0 g/dL (3.9-5) 10/02/17 20: Albumin/Globulin Ratio 1.2 % 10/02/17 20:26 Urine Color Yellow (Yellow) 10/02/17 20:05 Urine Turbidity Clear (Clear) 10/02/17 20:05 Urine pH 5.0 (5.0-7.0) 10/02/17 20:05 Ur Specific [place] 1.028 (1.003-1.030) 10/02/17 20:05 Urine Protein >500 mg/dL (Negative) 10/02/17 20:05 Urine Glucose (UA) 50 mg/dL (Negative) 10/02/17 20:05 Urine Ketones 20 mg/dL (Negative) 10/02/17 20:05 Urine Blood Mod (Negative) 10/02/17 20:05 Urine Nitrite Neg (Negative) 10/02/17 20:05 Urine Bilirubin Neg (Negative) 10/02/17 20:05 Urine Urobilinogen < 2.0 mg/dL (<2.0) 10/02/17 20:05 Ur Leukocyte Esterase Neg (Negative) 10/02/17 20:05 Urine WBC (Auto) 8.0 /HPF (0.0-6.0) H 10/02/17 20:05 Urine RBC (Auto) 3.0 /HPF (0.0-6.0) 10/02/17 20:05 U Epithel Cells (Auto) 1.0 /HPF (0-13.0) 10/02/17 20:05 Urine Bacteria (Auto) 1+ /HPF (Negative) 10/02/17 20:05 Granular Casts 3 /LPF 10/02/17 20:05 Urine Mucus 2+ /HPF 10/02/17 20:05 CSF Appearance Clear 10/02/17 23:00 CSF Color Colorless 10/02/17 23:00 CSF WBC 2 /mm3 (1-10) 10/02/17 23:00 CSF RBC 54 /mm3 (0-0) 10/02/17 23:00 CSF Seg Neutrophils 14.3 % (0-6) 10/02/17 23:00 CSF Lymphocytes % 85.7 % (40-80) 10/02/17 23:00 CSF Reactive Lymphs 0 % 10/02/17 23:00 CSF Monocytes % 0 % (15-45) 10/02/17 23:00 CSF Eosinophils % 0 % 10/02/17 23:00 CSF Basophils 0 % 10/02/17 23:00 CSF Comment Diff performed 10/02/17 23:00 CSF Pathologist Review C 10/02/17 23:00 CSF Glucose 94 mg/dL 10/02/17 23:00 CSF Total Protein 56 mg/dL 10/02/17 23:00 Salicylates < 0.3 mg/dL (2.8-20.0) L 10/02/17 20:53 Acetaminophen < 5.0 ug/mL (10.0-30.0) L 10/02/17 20:53 [place] 0.1 mmol/L (0.0-1.2) 10/02/17 20:53
[2017-10-03] MEDS ORDERED: ATIVAN PO PRN ×2 (09:38→14:00)
[2017-10-03] MEDS ORDERED: LOVENOX SUB-Q SCH (10:00)
[2017-10-03] MEDS ORDERED: cefTRIAXone 1 GM in NACL 0.9% 20 ML IV SCH (10:00)
[2017-10-03] MEDS ORDERED: ROCEPHIN/NS 1 GM/50 ML 1 GM/50 ML BAG IV SCH (10:00)
[2017-10-03] MEDS: D5W 1,000 ML IV SCH ×2 (10:32→19:12)
--- NOTE | 2017-10-03 12:57 | Consultation ---
History of Present Illness Consult date: 10/03/17 Requesting physician: LILLIE YUSUF Reason for Consult: AMS Chief complaint: AMS History of present illness: This 52 year old female cannot give a history. Per Dr. Contreras: patient "with bipolar, schizophrenia was brought to the ER for evaluation of altered mental status. No further history is available. A lumbar puncture was done and the patient was treat emperically for meningitis and possible NMS, however poison control recommend supportive care. A ROS is unobtainable. EMS reported that patient is from a [facility], unknown baseline mental status." LP was negative. Past History Past Medical History: other (schizophrenia, bipolar disorder) Social history: smoking (but can't tell me how much), other (cannot answer questions) Family history: other (cannot answer questions) Medications and Allergies Allergies Allergy/AdvReac Type Severity Reaction Status Date / Time Unable to Assess Allergy Unverified 10/02/17 20:11 Home Medications Medication Instructions Recorded Confirmed Last Taken Type LORazepam [Ativan] 1 mg PO TID 10/02/17 10/02/17 Unknown History risperiDONE [Risperdal] 2 mg PO BID 10/02/17 10/02/17 Unknown History Active Meds: Active Medications Acetaminophen (Tylenol) 650 mg PO Q4H PRN PRN Reason: Pain MILD(1-3)/Fever >100.5/[place] Enoxaparin Sodium (Lovenox) 40 mg SUB-Q QDAY@1000 [facility]ONIDES Last Admin: 10/03/17 09:15 Dose: 40 mg Piperacillin Sod/Tazobactam Sod (Zosyn/Ns 4.5gm/100ml) 4.5 gm in 100 mls @ 200 mls/hr IV Q8HR [facility]ON[facility] Dextrose (D5w) 1,000 mls @ 125 mls/hr IV DIRECT [facility] Last Admin: 10/03/17 10:32 Dose: 125 mls/hr Lorazepam (Ativan) 0.5 mg PO TID LEONIDES Ondansetron HCl (Zofran) 4 mg IV Q4H PRN PRN Reason: Nausea And Vomiting Sodium Chloride (Sodium Chloride Flush Syringe 10 Ml) 10 ml IV BID [facility] Last Admin: 10/03/17 09:19 Dose: 10 ml Sodium Chloride (Sodium Chloride Flush Syringe 10 Ml) 10 ml IV PRN PRN PRN Reason: LINE FLUSH Review of Systems ROS unobtainable: due to mental status (says yes to headache but cannot describe ) Physical Examination - Vital Signs Vital Signs: Vital Signs Pulse Resp 137 H 19 10/02/17 19:58 10/02/17 19:58 - Physical Exam Narrative exam: General Appearance: well developed well nourished (per BMI) early 50's female in NAD but incoherent with one or two words understandable but mostly garbled. HEENT: atraumatic, normocephalic; no bruits, 2+ [place] without soreness, sclerae nonicteric. Oropharynx pink and moist. Neck: stiff, no bruits. Heart: no murmur or extra sounds. Rapid rate. Extremities: no clubbing, cyanosis or edema. 2+ dorsalis pedis pulses bilaterally. Neurologic Exam: Mental Status: Awake, cannot answer orientation questions even by multichoice. Obeys some commands as noted. Cranial Nerves: blinks to threat, cannot cooperate for fundus exam, PERRL, EOMs full to Doll's eyes without nystagmus but does not track me, facial sensation intact to pinprick, positive corneals, no facial grimace to command or supraorbital pressure, Jose cannot be tested, palate rises symmetrically to phonation and gags are positive, won't shrug shoulders or protrude tongue. Cerebellar: finger to nose and heel to [place] cannot be done, some resting tremor X 2. Sensory: seems to have decreased pinprick below knees, cannot test light touch or vibrations. Double simultaneous stimulation cannot be done. Motor Exam Upper Extremities: won't lift arms but keeps right arm vertically in air with elbow one foot off bed once placed there and holds left arm above bed slightly once placed there. Tone very increased with finger contractures katherine left. No atrophy or fasciculations are noted visually. Motor Exam Lower Extremities: will not lift legs off bed. Tone is increased on the right. No atrophy or fasciculations are noted visually. Withdraws legs to plantar rub X 2. Wiggles toes to command right>left but won't kick feet off bed with knee supported. Reflexes: Palmomental and jaw jerk are negative but snout is strongly positive. Triceps are 1+, biceps are 2 and brachioradialis are 2 bilaterally. Bear' s is negative bilaterally. Knee jerks are 3 and ankle jerks are trace right and 0 left without clonus. Toes are upgoing right and downgoing left to Babinski testing. - Assessment Assessment Interval: Baseline (not done since not appropriate) Results - Laboratory Findings CBC and BMP: 10/03/17 04:25 10/03/17 04:25 Abnormal Lab Findings: Abnormal Labs 10/02/17 10/02/17 10/02/17 20:05 20:26 20:26 WBC 17.1 H RDW 12.9 L Plt Count 475 H Lymph % (Auto) 7.7 L [place] % (Auto) 7.6 H [place] # 1.3 H Seg Neutrophils % 84.4 H Seg Neutrophils # 14.5 H PT 15.4 H INR 1.16 H POC ABG pH POC ABG pCO2 Sodium Chloride Carbon Dioxide BUN Glucose Lactic Acid Calcium Magnesium AST Total Creatine Kinase CK-MB (CK-2) Urine WBC (Auto) 8.0 H Salicylates Acetaminophen 10/02/17 10/02/17 10/02/17 20:26 20:26 20:53 WBC RDW Plt Count Lymph % (Auto) [place] % (Auto) [place] # Seg Neutrophils % Seg Neutrophils # PT INR POC ABG pH POC ABG pCO2 Sodium 151 H Chloride 112.5 H Carbon Dioxide 21 L BUN 37 H Glucose 159 H Lactic Acid 3.10 H* Calcium Magnesium 2.40 H AST 113 H Total Creatine Kinase 5716 H CK-MB (CK-2) Urine WBC (Auto) Salicylates Acetaminophen 10/02/17 10/02/17 10/02/17 20:53 20:53 21:10 WBC RDW Plt Count Lymph % (Auto) [place] % (Auto) [place] # Seg Neutrophils % Seg Neutrophils # PT INR POC ABG pH 7.460 H POC ABG pCO2 32.3 L Sodium Chloride Carbon Dioxide BUN Glucose Lactic Acid Calcium Magnesium AST Total Creatine Kinase CK-MB (CK-2) Urine WBC (Auto) Salicylates < 0.3 L Acetaminophen < 5.0 L 10/03/17 10/03/17 10/03/17 01:39 04:25 04:25 WBC 19.6 H RDW 12.5 L Plt Count Lymph % (Auto) [place] % (Auto) 9.4 H [place] # 1.8 H Seg Neutrophils % 74.2 H Seg Neutrophils # 14.5 H PT INR POC ABG pH POC ABG pCO2 Sodium 154 H Chloride 118.0 H Carbon Dioxide 21 L BUN 25 H Glucose 117 H Lactic Acid Calcium 8.1 L Magnesium AST Total Creatine Kinase 5392 H CK-MB (CK-2) 40.1 H Urine WBC (Auto) Salicylates Acetaminophen Assessment and Plan Impression: 1. Confusion 2. Hypernatremia Plan: 1. MRI brain and MRA and MR venogram all without contrast, to be done due to motor and reflex asymmetries and spasticity. If negative may need cervical spine MRI. 2. EEG done, normal waking. 3. Ativan around the clock instead of prn, to avoid withdrawal. 35 min critical care time spent. Thank you for an interesting consultation on this unfortunate early 50's lady.
[2017-10-03] MEDS: ZOSYN/NS 4.5GM/100ML 4.5 GM/100 ML VIAL IV SCH ×2 (13:53→23:22)
[2017-10-03] MEDS ORDERED: ATIVAN PO SCH ×2 (14:00)
--- NOTE | 2017-10-03 14:00 | Electroencephalogram Report ---
Electroencephalogram EEG Date of exam: 10/03/17 Description: Preliminary reading: EMG artifact, shivering artifact, otherwise normal waking. Interpretation: Preliminary reading: normal waking EEG.
[2017-10-03] MEDS: ATIVAN IV SCH (19:50)
--- NOTE | 2017-10-04 01:39 | Consultation ---
CONSULTING PHYSICIAN: Yonathan Ibanez MD REASON FOR CONSULTATION: Altered mental status, suspicion for neuroleptic malignant syndrome. CHIEF COMPLAINT AND HISTORY OF PRESENT ILLNESS: The patient is a 52-year-old -[place] female, as far as I can tell from the records, past medical history is significant for bipolar disorder and schizophrenia, was brought in to the Emergency Room for evaluation of altered mental status. No further history was available. According to the emergency physician's notes, the patient was awake, did not speak, was not following command, was moaning occasionally. The evaluation in the Emergency Room revealed amongst other things that she was awake, was not following commands, but again there is no other history that we could get, no family and no records from her reported residential. Evaluation revealed that she had been on Risperdal. She had been on some lorazepam. There was a fear for possible neuroleptic malignant syndrome, I believe her labs showed evidence of rhabdomyolysis and we are asked to assist with her management. When I stopped by to see her in the Emergency Room, she was as described in the ER, still showed signs of the systemic inflammatory response syndrome. There had been no reported seizures. There has been no high-grade fevers. The patient's tobacco use/abuse history is unknown. She reportedly had gotten a lumbar puncture done that really was an unremarkable lumbar puncture or CSF study. This really is as much of the history of presentation as I have. PAST MEDICAL HISTORY: Reported history of bipolar disorder and schizophrenia. PAST SURGICAL HISTORY: Unknown. MEDICATIONS: She was on at the time I stopped by to see were reviewed, pertinent medications include the following: P.r.n. Tylenol, Ativan 0.5 mg p.o. t.i.d. scheduled, Zofran 4 mg IV q. 4 hours p.r.n. nausea and vomiting, Zosyn 4.5 grams IV q. 8 hours. She received acyclovir 800 mg IV in the ER, she received Rocephin in the ER, she received a 10 mg dose of Decadron x 1. She received a dose of vancomycin 1.25 grams. ALLERGIES: Unknown. DIET: Petite lady, acute weight loss or gain history is unknown. FAMILY AND SOCIAL HISTORY: Reportedly lived in a residential prior to this admission. Alcohol, tobacco, or illicit drug use or abuse history is unknown. The records from the ER mention that she is a never smoker. REVIEW OF SYSTEMS: Unobtainable secondary to the patient's medical and mental condition. Again, since she has been here, no active seizure activity. No hematochezia, no melena, no hematuria, no hematemesis. No hemoptysis. REVIEW OF SYSTEMS: Otherwise unobtainable. PHYSICAL EXAMINATION: VITAL SIGNS: At presentation in the Emergency Room, she had a low grade fever of 99.9 degrees Fahrenheit, pulse of 137, respiratory rate of 19, blood pressure 156/105, oxygen sats were 100%, inspired oxygen concentration was not recorded. At the time I saw her, she was 100% on room air. T-max this admission 100.6 degrees Fahrenheit. GENERAL: She is a petite-looking, middle-aged looking, -[place] female, normocephalic, atraumatic, looks her stated age, resting in bed with mildly increased work of breathing. HEAD, EYES, EARS, NOSE AND THROAT: She is anicteric. No conjunctival erythema. Oropharynx Dry. No gross jugular venous distention, no thyromegaly. Grossly, no palpable lymph nodes in the supraclavicular or submandibular lymph node chains. LUNGS: Auscultation of both lung chaudhry unremarkable. Lungs are clear bilaterally, slightly diminished bilateral breath sounds. HEART: Heart sounds 1 and 2 are heard, regular rate and rhythm at the time of my evaluation. No rubs or murmurs. ABDOMEN: Soft, flat. Bowel sounds are positive, nontender, no palpable hepatosplenomegaly. EXTREMITIES: Without overt digital clubbing, cyanosis, no pedal edema. SKIN: The skin was of poor turgor. She did have an area of induration, maybe about 8 x 4 cm on left lateral thigh, that there was some induration, it was tender. No fluctuance and no pus was expressed. Otherwise, the skin is without cellulitis or rash and no decubitus ulcers. NEUROLOGIC: She had spontaneous movements to all extremities. She did have a little bit of hyperreflexia. No rigidity, no obvious clonus, Babinski response is as expected, i.e., it is nonextensor. LABORATORY DATA: From my review are as follows: Admission white cell count 17,100 with a hemoglobin of 12.9, hematocrit of 39.5, platelet count of 475. No manual differential. INR 1.16. Arterial blood gas showed a pH of 7.46, pCO2 of 32, pO2 of 92 on room air. Serum sodium was 151, potassium 4.2, chloride 113, bicarb 21, BUN was 37, creatinine 1.2, glucose 159. Lactic acid level was within normal limits. AST slightly elevated at 113. CPK was up at 5716. Urinalysis negative for nitrites and leukocyte esterase, 8 white cells per high power field. CSF studies: 2 white cells, rbc was elevated at 54. CSF protein was 56 and glucose was 94. Tylenol and aspirin levels were nondetectable. [place] level was within expected limits. RADIOLOGICAL DATA: A CT scan was done of the head. I have reviewed the report. It was a normal study for age. The CT of the abdomen and pelvis was also done. It showed an enlarged uterus with possible leiomyomas, no acute disease. A chest x-ray was also done. I have reviewed the chest x-ray and really no acute disease. No acute process is obvious on the chest x-ray. ASSESSMENT AND PLAN: 1. Acute encephalopathy. 2. Systemic inflammatory response syndrome. 3. Rhabdomyolysis. 4. Hypernatremia. 5. Elevated serum transaminases. 6. History of bipolar disorder. 7. History of schizophrenia. 8. Mild metabolic acidosis. PLAN: We will continue to follow her clinically in the ICU, observe her overnight while the neurology exam is completed. She will be put on gentle hydration in light of the hypernatremia. I will keep her on an isotonic solution, but in light of the mild metabolic acidosis and rhabdo, I will alkalinize the urine somewhat. I will put her on D5W with 1 amp of sodium bicarbonate per liter and run that at about 75-100 mL per hour for about 3-4 liters and reevaluate. We will use p.r.n. Ativan for any seizure-type activity. She will continue empiric broad-spectrum antibiotic therapy while we wait on the results of cultures, which include blood and urine cultures. Aspiration precautions will be maintained. She will be started on gastrointestinal prophylaxis as well as DVT prophylaxis. Accu-Cheks are going to be q.6h. and covered with a sliding scale. Nutrition consult will be placed. A feeding tube will be passed as we cannot get her to swallow at this time. We will have physical therapy take a look at her. I am not convinced we are dealing with an overt neuroleptic malignant syndrome here, but we will certainly avoid any medications that could make that syndrome worse or pushing her towards that. Flu and pneumonia vaccination will be addressed per protocol. Thank you very much for the consult. We will follow along. We will make further recommendations as picture progresses/becomes clearer. My hope is that as early as tomorrow, we can transfer her to regular room or at monitored bed and out of the Intensive Care Unit. JOB# [id number] DERIAN/MARICARMEN MTDD
[2017-10-04] MEDS: D5W 1,000 ML IV SCH ×3 (03:00→22:07)
[2017-10-04] MEDS: ZOSYN/NS 4.5GM/100ML 4.5 GM/100 ML VIAL IV SCH (06:25)
[2017-10-04] MEDS: ATIVAN IV SCH (10:11)
[2017-10-04] MEDS: LOVENOX SUB-Q SCH (10:22)
[2017-10-04] MEDS: SODIUM CHLORIDE FLUSH SYRINGE 10 ML IV SCH ×2 (10:22→22:06)
--- NOTE | 2017-10-04 11:53 | Progress Note ---
Assessment and Plan Acute encephalopathy. Systemic inflammatory response syndrome. Rhabdomyolysis. Hypernatremia. Elevated serum transaminases. History of bipolar disorder. History of schizophrenia. Mild metabolic acidosis - encephalopathy improving - stop free water as hypernatremia resolved - place feeding tube and begin enteral nutrition - swallow evaluation - aspiration precautions - get psychiatry evaluation and resume home psych meds (per daughter not too far from baseline) - de-escalate antibiotics (will stop and observe clinically with CRP of 0.9) - continue GI & VTE prophylaxis - transfer to medical floor - PT/OT to evaluate and treat ... care plan discussed with daughter in room .... 35' Subjective Date of service: 10/04/17 Principal diagnosis: Acute Encephalopathy; SIRS; Hypernatremia; Rhabdomyolysis; Bipolar Disorder Interval history: Patient is seen today for: Acute Encephalopathy; SIRS; Hypernatremia; Rhabdomyolysis; Bipolar Disorder Seen and examined at bedside; 24hour events reviewed; nursing and respiratory care staff consulted; no adverse overnight events reported to me; resting in bed ; daughter visiting; a little more alert / responsive; No N/V/F/C; not cooperating with feeding Objective Vital Signs - 12hr 10/04/17 10/04/17 10/04/17 00:00 00:10 00:20 Temperature Pulse Rate 110 H 111 H 96 H Pulse Rate [ From Monitor] Pulse Rate [ None] Respiratory 15 16 13 Rate Blood Pressure 143/100 143/100 O2 Sat by Pulse 92 99 100 Oximetry 10/04/17 10/04/17 10/04/17 00:30 00:40 00:50 Temperature Pulse Rate 109 H 107 H 102 H Pulse Rate [ From Monitor] Pulse Rate [ None] Respiratory 17 14 14 Rate Blood Pressure 143/100 143/100 143/100 O2 Sat by Pulse 100 100 99 Oximetry 10/04/17 10/04/17 10/04/17 01:00 01:10 01:20 Temperature Pulse Rate 111 H 106 H 110 H Pulse Rate [ From Monitor] Pulse Rate [ None] Respiratory 19 15 14 Rate Blood Pressure 131/97 131/97 131/97 O2 Sat by Pulse 100 100 96 Oximetry 10/04/17 10/04/17 10/04/17 01:30 01:40 01:50 Temperature Pulse Rate 106 H 102 H 102 H Pulse Rate [ From Monitor] Pulse Rate [ None] Respiratory 17 14 15 Rate Blood Pressure 131/97 131/97 131/97 O2 Sat by Pulse 99 100 99 Oximetry 10/04/17 10/04/17 10/04/17 02:00 02:10 02:20 Temperature Pulse Rate 99 H 91 H 93 H Pulse Rate [ From Monitor] Pulse Rate [ None] Respiratory 15 13 14 Rate Blood Pressure 112/66 112/66 112/66 O2 Sat by Pulse 99 99 99 Oximetry 10/04/17 10/04/17 10/04/17 02:30 02:40 02:50 Temperature Pulse Rate 97 H 94 H 113 H Pulse Rate [ From Monitor] Pulse Rate [ None] Respiratory 14 13 16 Rate Blood Pressure 112/66 112/66 112/66 O2 Sat by Pulse 98 98 99 Oximetry 10/04/17 10/04/17 10/04/17 03:00 03:10 03:20 Temperature Pulse Rate 121 H 89 98 H Pulse Rate [ From Monitor] Pulse Rate [ None] Respiratory 18 16 11 L Rate Blood Pressure 112/66 154/103 154/103 O2 Sat by Pulse 99 100 99 Oximetry 10/04/17 10/04/17 10/04/17 03:30 03:40 03:50 Temperature 97.8 F Pulse Rate 98 H 99 H 96 H Pulse Rate [ From Monitor] Pulse Rate [ None] Respiratory 15 14 16 Rate Blood Pressure 154/103 154/103 154/103 O2 Sat by Pulse 98 98 98 Oximetry 10/04/17 10/04/17 10/04/17 04:00 04:05 04:10 Temperature Pulse Rate 84 96 H Pulse Rate [ From Monitor] Pulse Rate [ 91 H None] Respiratory 10 L 16 13 Rate Blood Pressure 109/74 109/74 109/74 O2 Sat by Pulse 100 100 97 Oximetry 10/04/17 10/04/17 10/04/17 04:20 04:30 04:40 Temperature Pulse Rate 112 H 91 H 97 H Pulse Rate [ From Monitor] Pulse Rate [ None] Respiratory 15 14 13 Rate Blood Pressure 109/74 109/74 109/74 O2 Sat by Pulse 99 99 99 Oximetry 10/04/17 10/04/17 10/04/17 04:50 05:00 05:10 Temperature Pulse Rate 98 H 89 95 H Pulse Rate [ From Monitor] Pulse Rate [ None] Respiratory 16 14 14 Rate Blood Pressure 109/74 83/64 83/64 O2 Sat by Pulse 98 99 99 Oximetry 10/04/17 10/04/17 10/04/17 05:20 05:30 05:40 Temperature Pulse Rate 88 95 H 91 H Pulse Rate [ From Monitor] Pulse Rate [ None] Respiratory 10 L 9 L 13 Rate Blood Pressure 83/64 83/64 83/64 O2 Sat by Pulse 99 99 99 Oximetry 10/04/17 10/04/17 10/04/17 05:41 05:50 06:00 Temperature Pulse Rate 89 102 H 100 H Pulse Rate [ From Monitor] Pulse Rate [ None] Respiratory 19 13 12 Rate Blood Pressure 83/64 86/71 O2 Sat by Pulse 100 98 98 Oximetry 10/04/17 10/04/17 10/04/17 06:10 06:20 06:30 Temperature Pulse Rate 96 H 91 H 96 H Pulse Rate [ From Monitor] Pulse Rate [ None] Respiratory 14 9 L 13 Rate Blood Pressure 86/71 86/71 86/71 O2 Sat by Pulse 99 100 99 Oximetry 10/04/17 10/04/17 10/04/17 06:40 06:50 07:00 Temperature Pulse Rate 96 H 93 H 112 H Pulse Rate [ From Monitor] Pulse Rate [ None] Respiratory 14 14 20 Rate Blood Pressure 86/71 86/71 135/98 O2 Sat by Pulse 99 99 97 Oximetry 10/04/17 10/04/17 10/04/17 07:10 07:20 07:30 Temperature Pulse Rate 86 81 83 Pulse Rate [ From Monitor] Pulse Rate [ None] Respiratory 13 14 12 Rate Blood Pressure 135/98 86/71 86/71 O2 Sat by Pulse 100 100 100 Oximetry 10/04/17 10/04/17 10/04/17 07:40 07:50 08:00 Temperature Pulse Rate 88 93 H 89 Pulse Rate [ 112 H From Monitor] Pulse Rate [ None] Respiratory 16 12 12 Rate Blood Pressure 86/71 86/71 93/63 O2 Sat by Pulse 99 98 98 Oximetry 10/04/17 10/04/17 10/04/17 08:10 08:20 08:30 Temperature Pulse Rate 108 H 89 89 Pulse Rate [ From Monitor] Pulse Rate [ None] Respiratory 17 9 L 11 L Rate Blood Pressure 93/63 93/63 93/63 O2 Sat by Pulse 100 100 100 Oximetry 06/15/18 06/15/18 06/15/18 08:40 08:50 09:00 Temperature Pulse Rate 93 H 87 92 H Pulse Rate [ From Monitor] Pulse Rate [ None] Respiratory 11 L 11 L 12 Rate Blood Pressure 93/63 93/63 92/62 O2 Sat by Pulse 100 100 Oximetry 10/04/17 10/04/17 10/04/17 09:10 09:20 09:30 Temperature Pulse Rate 84 86 94 H Pulse Rate [ From Monitor] Pulse Rate [ None] Respiratory 11 L 12 17 Rate Blood Pressure 92/62 92/62 92/62 O2 Sat by Pulse 100 100 100 Oximetry 10/04/17 10/04/17 10/04/17 09:40 09:50 10:00 Temperature Pulse Rate 91 H 96 H 85 Pulse Rate [ 96 H From Monitor] Pulse Rate [ None] Respiratory 21 12 9 L Rate Blood Pressure 92/62 92/62 101/71 O2 Sat by Pulse 100 100 100 Oximetry 10/04/17 10/04/17 10/04/17 10:10 10:20 10:30 Temperature Pulse Rate 87 87 89 Pulse Rate [ From Monitor] Pulse Rate [ None] Respiratory 11 L 11 L 12 Rate Blood Pressure 101/71 101/71 101/71 O2 Sat by Pulse 100 100 100 Oximetry 10/04/17 10/04/17 10/04/17 10:40 10:50 11:00 Temperature Pulse Rate 91 H 88 95 H Pulse Rate [ From Monitor] Pulse Rate [ None] Respiratory 14 13 11 L Rate Blood Pressure 101/71 107/78 O2 Sat by Pulse 99 100 99 Oximetry 10/04/17 11:10 Temperature Pulse Rate 87 Pulse Rate [ From Monitor] Pulse Rate [ None] Respiratory 10 L Rate Blood Pressure 107/78 O2 Sat by Pulse 100 Oximetry Constitutional: no acute distress, other (middle aged AAF; normocephalic and atraumatic in no acute respiratory distress) Eyes: non-icteric ENT: oropharynx moist, other (mallampatti II) Neck: supple, no lymphadenopathy, no JVD, other (no thyromegaly) Effort: mildly labored Ascultation: Bilateral: clear Percussion: Bilateral: not dull Cardiovascular: regular rate and rhythm, other (no R/M) Gastrointestinal: normoactive bowel sounds, soft, non-tender, non-distended, other (No HSM) Integumentary: other (left thigh tender indurated 4X6 cm area improving) Extremities: no cyanosis, no edema, pulses normal, no ischemia or petechiae Neurologic: non-focal exam, pupils equal and round, CN II-XII normal Psychiatric: other (flat affect) CBC and BMP: 10/05/17 05:23 10/05/17 05:23 ABG, PT/INR, D-dimer: ABG POC ABG pH 7.460 (7.35-7.45) H 10/02/17 21:10 POC ABG pCO2 32.3 (35-45) L 10/02/17 21:10 POC ABG pO2 92 (80-105) 10/02/17 21:10 POC ABG HCO3 23.0 10/02/17 21:10 POC ABG Total CO2 24 10/02/17 21:10 POC ABG O2 Sat 98 10/02/17 21:10 PT/INR, D-dimer PT 15.4 Sec. (12.2-14.9) H 10/02/17 20:26 INR 1.16 (0.87-1.13) H 10/02/17 20:26 Abnormal lab findings: Abnormal Labs 10/02/17 10/02/17 10/02/17 20:05 20:26 20:26 WBC 17.1 H RDW 12.9 L Plt Count 475 H Lymph % (Auto) 7.7 L [place] % (Auto) 7.6 H [place] # 1.3 H Seg Neutrophils % 84.4 H Seg Neutrophils # 14.5 H PT 15.4 H INR 1.16 H POC ABG pH POC ABG pCO2 Sodium Chloride Carbon Dioxide BUN Glucose POC Glucose Lactic Acid Calcium Magnesium AST Total Creatine Kinase CK-MB (CK-2) Urine WBC (Auto) 8.0 H Salicylates Acetaminophen 10/02/17 10/02/17 10/02/17 20:26 20:26 20:53 WBC RDW Plt Count Lymph % (Auto) [place] % (Auto) [place] # Seg Neutrophils % Seg Neutrophils # PT INR POC ABG pH POC ABG pCO2 Sodium 151 H Chloride 112.5 H Carbon Dioxide 21 L BUN 37 H Glucose 159 H POC Glucose Lactic Acid 3.10 H* Calcium Magnesium 2.40 H AST 113 H Total Creatine Kinase 5716 H CK-MB (CK-2) Urine WBC (Auto) Salicylates Acetaminophen 10/02/17 10/02/17 10/02/17 20:53 20:53 21:10 WBC RDW Plt Count Lymph % (Auto) [place] % (Auto) [place] # Seg Neutrophils % Seg Neutrophils # PT INR POC ABG pH 7.460 H POC ABG pCO2 32.3 L Sodium Chloride Carbon Dioxide BUN Glucose POC Glucose Lactic Acid Calcium Magnesium AST Total Creatine Kinase CK-MB (CK-2) Urine WBC (Auto) Salicylates < 0.3 L Acetaminophen < 5.0 L 10/03/17 10/03/17 10/03/17 01:39 04:25 04:25 WBC 19.6 H RDW 12.5 L Plt Count Lymph % (Auto) [place] % (Auto) 9.4 H [place] # 1.8 H Seg Neutrophils % 74.2 H Seg Neutrophils # 14.5 H PT INR POC ABG pH POC ABG pCO2 Sodium 154 H Chloride 118.0 H Carbon Dioxide 21 L BUN 25 H Glucose 117 H POC Glucose Lactic Acid Calcium 8.1 L Magnesium AST Total Creatine Kinase 5392 H CK-MB (CK-2) 40.1 H Urine WBC (Auto) Salicylates Acetaminophen 10/03/17 10/03/17 10/04/17 11:46 13:00 05:40 WBC RDW Plt Count Lymph % (Auto) [place] % (Auto) [place] # Seg Neutrophils % Seg Neutrophils # PT INR POC ABG pH POC ABG pCO2 Sodium Chloride Carbon Dioxide BUN Glucose POC Glucose 117 H 110 H Lactic Acid Calcium Magnesium AST Total Creatine Kinase 3884 H CK-MB (CK-2) 21.0 H Urine WBC (Auto) Salicylates Acetaminophen Chest x-ray: image reviewed
[2017-10-04] MEDS ORDERED: SIMPLE SYRUP FEEDTUBE PRN ×2 (12:16)
[2017-10-04] MEDS ORDERED: PANCREAZE DR 10,500 UNIT FEEDTUBE PRN (12:16)
[2017-10-04] MEDS ORDERED: SODIUM BICARBONATE FEEDTUBE PRN (12:16)
--- NOTE | 2017-10-04 14:39 | XRay Report ---
AP ABDOMEN: HISTORY: Feeding tube placement. The feeding tube terminates in the distal stomach. The abdominal gas pattern is unremarkable. No masses or organomegaly is identified and there is no gross evidence of free air or fluid. No significant soft tissue calcifications are noted. IMPRESSION: Unremarkable abdomen.
[2017-10-04] MEDS: RisperDAL PO SCH ×2 (15:04→22:06)
[2017-10-04] MEDS: COGENTIN IV SCH (15:25)
[2017-10-04 16:16] LABS: BUN/Creatinine Ratio 8; Blood Urea Nitrogen 5 mg/dL (7-17); Calcium 8.6 mg/dL (8.4-10.2); Hemolysis Index 50
--- NOTE | 2017-10-04 17:27 | Progress Note ---
Assessment and Plan Assessment and plan: Per HPI documentation 52 year old woman with bipolar, schizophrenia was brought to the ER for evaluation of altered mental status. No further history is available. A lumbar puncture was done and the patient was treat emperically for meningitis and possible NMS, however poison control recommend supportive care. A ROS is unobtainable EMS reported that patient is from a assisted, unknown baseline mental status Acute Encephalopathy Unkown Etiology * CT brain negative. * R/O Serotonin syndrome-Less likely * Neurology and Pysch consultation.input noted. EEG negative. * EEG * lumber puncture serology negative for Bacterial Meningitis * ?Acute cystitis * Await cultures-no growth. SIRS * POA, Leukocytosis, Tachycardia, * Continue vancomycin and zosyn D#2 * cxr is negative for acute disease * s/p one dose Acyclovir. Hypernatermia * change to D5W and recheck Mildly elevated CPK.-Possible Mild Rhabdomylysis * EKG on admission-Sinus tachycardia, normal axis, motion artifact, QTC prolonged, abnormal EKG, not a STEMI per ER. Not available for my review Bipolar disorder Retirement Resident Schizophrenia * On Respiradone and ativan on MED REC * Resume PRN ativan to prevent withdrawal Transfer to [facility] The high probability of a clinically significant, sudden or life threatening deterioration of the [NEURO] system(s) required my full and direct attention, intervention and personal management. The aggregate critical care time was [35] minutes. This time is in addition to time spent performing reported procedures but includes the following: [X] Data Review and interpretation [X] Patient assessment and monitoring of vital signs [X] Documentation [X] Medication orders and management History Interval history: Patient seen and examined still confused this morning, and lathergic, but some improvement. following some commands. Hospitalist Physical - Physical exam Narrative exam: Gen. appearance: Patient lying in bed, no apparent distress HEENT: Normocephalic, atraumatic, pupils equally round and reactive to light, pinpoint, unable to do extraocular movement, and no sclericterus,. No JVD or thyromegaly or nodule,neck supple, no carotid bruit ,mucous membranes moist, no exudate or erythema Heart: S1, S2, regular rate and rhythm Lungs: Clear anteriorly bilaterally, breathing comfortable Abdomen: Positive bowel sounds, soft, nondistended, no organomegaly Extremity:no edema, cyanosis, clubbing Neuro: lathargic, not answering questions but mumbles some incomprehensible words. follows some commands - Constitutional Vitals: Temp Pulse Resp BP Pulse Ox 97.8 F 95 H 22 125/95 100 10/04/17 03:40 10/04/17 15:50 10/04/17 16:00 10/04/17 16:00 10/04/17 16:00 Results - Labs CBC & Chem 7: 10/03/17 04:25 10/04/17 15:32 Labs: Laboratory Last Values WBC 19.6 K/mm3 (4.5-11.0) H 10/03/17 04:25 RBC 3.77 M/mm3 (3.65-5.03) 10/03/17 04:25 Hgb 11.4 gm/dl (10.1-14.3) 10/03/17 04:25 Hct 35.3 % (30.3-42.9) 10/03/17 04:25 MCV 94 fl (79-97) 10/03/17 04:25 MCH 31 pg (28-32) 10/03/17 04:25 MCHC 33 % (30-34) 10/03/17 04:25 RDW 12.5 % (13.2-15.2) L 10/03/17 04:25 Plt Count 339 K/mm3 (140-440) 10/03/17 04:25 Lymph % (Auto) 15.9 % (13.4-35.0) 10/03/17 04:25 [place] % (Auto) 9.4 % (0.0-7.3) H 10/03/17 04:25 Eos % (Auto) 0.1 % (0.0-4.3) 10/03/17 04:25 Baso % (Auto) 0.4 % (0.0-1.8) 10/03/17 04:25 Lymph # 3.1 K/mm3 (1.2-5.4) 10/03/17 04:25 [place] # 1.8 K/mm3 (0.0-0.8) H 10/03/17 04:25 Eos # 0.0 K/mm3 (0.0-0.4) 10/03/17 04:25 Baso # 0.1 K/mm3 (0.0-0.1) 10/03/17 04:25 Seg Neutrophils % 74.2 % (40.0-70.0) H 10/03/17 04:25 Seg Neutrophils # 14.5 K/mm3 (1.8-7.7) H 10/03/17 04:25 ESR 32 mm/Hr (0-20) 10/02/17 20:53 PT 15.4 Sec. (12.2-14.9) H 10/02/17 20:26 INR 1.16 (0.87-1.13) H 10/02/17 20:26 POC ABG pH 7.460 (7.35-7.45) H 10/02/17 21:10 POC ABG pCO2 32.3 (35-45) L 10/02/17 21:10 POC ABG pO2 92 (80-105) 10/02/17 21:10 POC ABG HCO3 23.0 10/02/17 21:10 POC ABG Total CO2 24 10/02/17 21:10 POC ABG O2 Sat 98 10/02/17 21:10 POC ABG Base Excess -1 10/02/17 21:10 VBG pH 7.387 (7.320-7.420) 10/02/17 20:26 FiO2 21 % 10/02/17 21:10 Sodium 139 mmol/L (137-145) D 10/04/17 15:32 Potassium 3.4 mmol/L (3.6-5.0) L 10/04/17 15:32 Chloride 102.1 mmol/L (98-107) 10/04/17 15:32 Carbon Dioxide 25 mmol/L (22-30) 10/04/17 15:32 Anion Gap 15 mmol/L 10/04/17 15:32 BUN 5 mg/dL (7-17) L 10/04/17 15:32 Creatinine 0.6 mg/dL (0.7-1.2) L 10/04/17 15:32 Estimated GFR > 60 ml/min 10/04/17 15:32 BUN/Creatinine Ratio 8 % 10/04/17 15:32 Glucose 98 mg/dL (65-100) 10/04/17 15:32 POC Glucose 93 (70-105) 10/04/17 11:08 Lactic Acid 1.30 mmol/L (0.7-2.0) 10/02/17 23:41 Calcium 8.6 mg/dL (8.4-10.2) 10/04/17 15:32 Magnesium 2.40 mg/dL (1.7-2.3) H 10/02/17 20:53 Total Bilirubin 0.50 mg/dL (0.1-1.2) 10/02/17 20:26 AST 113 units/L (5-40) H 10/02/17 20:26 ALT 43 units/L (7-56) 10/02/17 20:26 Alkaline Phosphatase 76 units/L (35-129) 10/02/17 20:26 Total Creatine Kinase 3884 units/L (30-135) H 10/03/17 13:00 CK-MB (CK-2) 21.0 ng/mL (0.0-4.0) H 10/03/17 13:00 CK-MB (CK-2) Rel Index 0.5 (0-4) 10/03/17 13:00 Troponin T < 0.010 ng/mL (0.00-0.029) 10/03/17 13:00 C-Reactive Protein 0.90 mg/dL (0.00-1.30) 10/02/17 20:53 Total Protein 7.3 g/dL (6.3-8.2) 10/02/17 20: Albumin 4.0 g/dL (3.9-5) 10/02/17 20: Albumin/Globulin Ratio 1.2 % 10/02/17 20: Urine Color Yellow (Yellow) 10/02/17 20:05 Urine Turbidity Clear (Clear) 10/02/17 20:05 Urine pH 5.0 (5.0-7.0) 10/02/17 20:05 Ur Specific [place] 1.028 (1.003-1.030) 10/02/17 20:05 Urine Protein >500 mg/dL (Negative) 10/02/17 20:05 Urine Glucose (UA) 50 mg/dL (Negative) 10/02/17 20:05 Urine Ketones 20 mg/dL (Negative) 10/02/17 20:05 Urine Blood Mod (Negative) 10/02/17 20:05 Urine Nitrite Neg (Negative) 10/02/17 20:05 Urine Bilirubin Neg (Negative) 10/02/17 20:05 Urine Urobilinogen < 2.0 mg/dL (<2.0) 10/02/17 20:05 Ur Leukocyte Esterase Neg (Negative) 10/02/17 20:05 Urine WBC (Auto) 8.0 /HPF (0.0-6.0) H 10/02/17 20:05 Urine RBC (Auto) 3.0 /HPF (0.0-6.0) 10/02/17 20:05 U Epithel Cells (Auto) 1.0 /HPF (0-13.0) 10/02/17 20:05 Urine Bacteria (Auto) 1+ /HPF (Negative) 10/02/17 20:05 Granular Casts 3 /LPF 10/02/17 20:05 Urine Mucus 2+ /HPF 10/02/17 20:05 CSF Appearance Clear 10/02/17 23:00 CSF Color Colorless 10/02/17 23:00 CSF WBC 2 /mm3 (1-10) 10/02/17 23:00 CSF RBC 54 /mm3 (0-0) 10/02/17 23:00 CSF Seg Neutrophils 14.3 % (0-6) 10/02/17 23:00 CSF Lymphocytes % 85.7 % (40-80) 10/02/17 23:00 CSF Reactive Lymphs 0 % 10/02/17 23:00 CSF Monocytes % 0 % (15-45) 10/02/17 23:00 CSF Eosinophils % 0 % 10/02/17 23:00 CSF Basophils 0 % 10/02/17 23:00 CSF Comment Diff performed 10/02/17 23:00 CSF Pathologist Review C 10/02/17 23:00 CSF Glucose 94 mg/dL 10/02/17 23:00 CSF Total Protein 56 mg/dL 10/02/17 23:00 Salicylates < 0.3 mg/dL (2.8-20.0) L 10/02/17 20:53 Acetaminophen < 5.0 ug/mL (10.0-30.0) L 10/02/17 20:53 [place] 0.1 mmol/L (0.0-1.2) 10/02/17 20:53
--- NOTE | 2017-10-04 18:18 | Event Note ---
Date: 10/04/[address] Stover that per his note she is improving, probably since Na now normal at 139. He agreed I did not need to followup. Signing off, call for any questions/changes.
[2017-10-05] MEDS: COGENTIN IV SCH ×2 (03:26→14:07)
[2017-10-05] MEDS: D5W 1,000 ML IV SCH ×2 (06:03→14:06)
[2017-10-05 07:00] LABS: Hemoglobin 12.2 gm/dl (10.1-14.3); Mean Corpuscular HGB Conc 34 % (30-34); Mean Corpuscular Hemoglobin 31 pg (28-32); Mean Corpuscular Volume 91 fl (79-97); Platelet Count 397 K/mm3 (140-440); Red Blood Count 3.96 M/mm3 (3.65-5.03); Red Cell Distribution Width 12.5 % (13.2-15.2)
--- NOTE | 2017-10-05 07:15 | Progress Note ---
Assessment and Plan Assessment and plan: Per HPI documentation 52 year old woman with bipolar, schizophrenia was brought to the ER for evaluation of altered mental status. No further history is available. A lumbar puncture was done and the patient was treat emperically for meningitis and possible NMS, however poison control recommend supportive care. A ROS is unobtainable EMS reported that patient is from a [facility], unknown baseline mental status Acute Encephalopathy Unkown Etiology * CT brain negative. * R/O Serotonin syndrome-Less likely * Neurology and Pysch consultation-input noted. EEG negative. * lumber puncture serology AND crypto culture negative for Bacterial Meningitis * ?Acute cystitis * Await cultures-no growth. SIRS * POA, Leukocytosis, Tachycardia, * Continue vancomycin and zosyn D#4-Descalate in AM * cxr is negative for acute disease * s/p one dose Acyclovir. Hypernatermia * Improved, stop D5 once tolerating diet. Mildly elevated CPK.-Possible Mild Rhabdomylysis * EKG on admission-Sinus tachycardia, normal axis, motion artifact, QTC prolonged, abnormal EKG, not a STEMI per ER. Not available for my review Bipolar disorder * Restart home meds Long-Term Resident * Will return on discharge Schizophrenia * On Respiradone and ativan on MED REC * Resume PRN ativan to prevent withdrawal DVT/GI prophy No family present History Interval history: Patient seen and examined still confused this morning, and lethargic, but some improvement. following some commands. Hospitalist Physical - Physical exam Narrative exam: Gen. appearance: Patient lying in bed, no apparent distress HEENT: Normocephalic, atraumatic, pupils equally round and reactive to light, pinpoint, unable to do extraocular movement, and no sclericterus,. No JVD or thyromegaly or nodule,neck supple, no carotid bruit ,mucous membranes moist, no exudate or erythema Heart: S1, S2, regular rate and rhythm Lungs: Clear anteriorly bilaterally, breathing comfortable Abdomen: Positive bowel sounds, soft, nondistended, no organomegaly Extremity:no edema, cyanosis, clubbing Neuro: lathargic, not answering questions but mumbles some incomprehensible words. follows some commands - Constitutional Vitals: Temp Pulse Resp BP Pulse Ox 99.2 F 110 H 20 132/84 100 10/04/17 21:52 10/04/17 21:52 10/04/17 21:52 10/04/17 21:52 10/04/17 16:00 Results - Labs CBC & Chem 7: 10/05/17 05:23 10/05/17 05:23 Labs: Laboratory Last Values WBC 12.2 K/mm3 (4.5-11.0) H 10/05/17 05:23 RBC 3.96 M/mm3 (3.65-5.03) 10/05/17 05:23 Hgb 12.2 gm/dl (10.1-14.3) 10/05/17 05:23 Hct 36.0 % (30.3-42.9) 10/05/17 05:23 MCV 91 fl (79-97) 10/05/17 05:23 MCH 31 pg (28-32) 10/05/17 05:23 MCHC 34 % (30-34) 10/05/17 05:23 RDW 12.5 % (13.2-15.2) L 10/05/17 05:23 Plt Count 397 K/mm3 (140-440) 10/05/17 05:23 Lymph % (Auto) 15.9 % (13.4-35.0) 10/03/17 04:25 [place] % (Auto) 9.4 % (0.0-7.3) H 10/03/17 04:25 Eos % (Auto) 0.1 % (0.0-4.3) 10/03/17 04:25 Baso % (Auto) 0.4 % (0.0-1.8) 10/03/17 04:25 Lymph # 3.1 K/mm3 (1.2-5.4) 10/03/17 04:25 [place] # 1.8 K/mm3 (0.0-0.8) H 10/03/17 04:25 Eos # 0.0 K/mm3 (0.0-0.4) 10/03/17 04:25 Baso # 0.1 K/mm3 (0.0-0.1) 10/03/17 04:25 Seg Neutrophils % 74.2 % (40.0-70.0) H 10/03/17 04:25 Seg Neutrophils # 14.5 K/mm3 (1.8-7.7) H 10/03/17 04:25 ESR 32 mm/Hr (0-20) 10/02/17 20:53 PT 15.4 Sec. (12.2-14.9) H 10/02/17 20:26 INR 1.16 (0.87-1.13) H 10/02/17 20:26 POC ABG pH 7.460 (7.35-7.45) H 10/02/17 21:10 POC ABG pCO2 32.3 (35-45) L 10/02/17 21:10 POC ABG pO2 92 (80-105) 10/02/17 21:10 POC ABG HCO3 23.0 10/02/17 21:10 POC ABG Total CO2 24 10/02/17 21:10 POC ABG O2 Sat 98 10/02/17 21:10 POC ABG Base Excess -1 10/02/17 21:10 VBG pH 7.387 (7.320-7.420) 10/02/17 20:26 FiO2 21 % 10/02/17 21:10 Sodium 139 mmol/L (137-145) D 10/04/17 15:32 Potassium 3.4 mmol/L (3.6-5.0) L 10/04/17 15:32 Chloride 102.1 mmol/L (98-107) 10/04/17 15:32 Carbon Dioxide 25 mmol/L (22-30) 10/04/17 15:32 Anion Gap 15 mmol/L 10/04/17 15:32 BUN 5 mg/dL (7-17) L 10/04/17 15:32 Creatinine 0.6 mg/dL (0.7-1.2) L 10/04/17 15:32 Estimated GFR > 60 ml/min 10/04/17 15:32 BUN/Creatinine Ratio 8 % 10/04/17 15:32 Glucose 98 mg/dL (65-100) 10/04/17 15:32 POC Glucose 98 (70-105) 10/05/17 05:31 Lactic Acid 1.30 mmol/L (0.7-2.0) 10/02/17 23:41 Calcium 8.6 mg/dL (8.4-10.2) 10/04/17 15:32 Magnesium 2.40 mg/dL (1.7-2.3) H 10/02/17 20:53 Total Bilirubin 0.50 mg/dL (0.1-1.2) 10/02/17 20:26 AST 113 units/L (5-40) H 10/02/17 20:26 ALT 43 units/L (7-56) 10/02/17 20:26 Alkaline Phosphatase 76 units/L (35-129) 10/02/17 20:26 Total Creatine Kinase 3884 units/L (30-135) H 10/03/17 13:00 CK-MB (CK-2) 21.0 ng/mL (0.0-4.0) H 10/03/17 13:00 CK-MB (CK-2) Rel Index 0.5 (0-4) 10/03/17 13:00 Troponin T < 0.010 ng/mL (0.00-0.029) 10/03/17 13:00 C-Reactive Protein 0.90 mg/dL (0.00-1.30) 10/02/17 20:53 Total Protein 7.3 g/dL (6.3-8.2) 10/02/17 20: Albumin 4.0 g/dL (3.9-5) 10/02/17 20: Albumin/Globulin Ratio 1.2 % 10/02/17 20: Urine Color Yellow (Yellow) 10/02/17 20: Urine Turbidity Clear (Clear) 10/02/17 20:05 Urine pH 5.0 (5.0-7.0) 10/02/17 20:05 Ur Specific [place] 1.028 (1.003-1.030) 10/02/17 20:05 Urine Protein >500 mg/dL (Negative) 10/02/17 20:05 Urine Glucose (UA) 50 mg/dL (Negative) 10/02/17 20:05 Urine Ketones 20 mg/dL (Negative) 10/02/17 20:05 Urine Blood Mod (Negative) 10/02/17 20:05 Urine Nitrite Neg (Negative) 10/02/17 20:05 Urine Bilirubin Neg (Negative) 10/02/17 20:05 Urine Urobilinogen < 2.0 mg/dL (<2.0) 10/02/17 20:05 Ur Leukocyte Esterase Neg (Negative) 10/02/17 20:05 Urine WBC (Auto) 8.0 /HPF (0.0-6.0) H 10/02/17 20:05 Urine RBC (Auto) 3.0 /HPF (0.0-6.0) 10/02/17 20:05 U Epithel Cells (Auto) 1.0 /HPF (0-13.0) 10/02/17 20:05 Urine Bacteria (Auto) 1+ /HPF (Negative) 10/02/17 20:05 Granular Casts 3 /LPF 10/02/17 20:05 Urine Mucus 2+ /HPF 10/02/17 20:05 CSF Appearance Clear 10/02/17 23:00 CSF Color Colorless 10/02/17 23:00 CSF WBC 2 /mm3 (1-10) 10/02/17 23:00 CSF RBC 54 /mm3 (0-0) 10/02/17 23:00 CSF Seg Neutrophils 14.3 % (0-6) 10/02/17 23:00 CSF Lymphocytes % 85.7 % (40-80) 10/02/17 23:00 CSF Reactive Lymphs 0 % 10/02/17 23:00 CSF Monocytes % 0 % (15-45) 10/02/17 23:00 CSF Eosinophils % 0 % 10/02/17 23:00 CSF Basophils 0 % 10/02/17 23:00 CSF Comment Diff performed 10/02/17 23:00 CSF Pathologist Review C 10/02/17 23:00 CSF Glucose 94 mg/dL 10/02/17 23:00 CSF Total Protein 56 mg/dL 10/02/17 23:00 Salicylates < 0.3 mg/dL (2.8-20.0) L 10/02/17 20:53 Acetaminophen < 5.0 ug/mL (10.0-30.0) L 10/02/17 20:53 [place] 0.1 mmol/L (0.0-1.2) 10/02/17 20:53
[2017-10-05 07:18] LABS: BUN/Creatinine Ratio 8; Blood Urea Nitrogen 4 mg/dL (7-17); Calcium 8.3 mg/dL (8.4-10.2); Hemolysis Index 5
[2017-10-05] MEDS: LOVENOX SUB-Q SCH (09:52)
[2017-10-05] MEDS: SODIUM CHLORIDE FLUSH SYRINGE 10 ML IV SCH ×2 (09:53→22:33)
[2017-10-05] MEDS: RisperDAL PO SCH ×2 (09:53→22:33)
--- NOTE | 2017-10-05 13:10 | Progress Note ---
Subjective Date of service: 10/05/17 Interval history: Patient is seen today for: Seen and examined at bedside; 24hour events reviewed; nursing and respiratory care staff consulted; no adverse overnight events reported to me; Objective Vital Signs - 12hr 10/05/17 10/05/17 07:29 10:00 Temperature 98.1 F Pulse Rate 105 H Respiratory 19 Rate Blood Pressure 136/78 O2 Sat by Pulse 98 99 Oximetry CBC and BMP: 10/05/17 05:23 10/05/17 05:23 ABG, PT/INR, D-dimer: ABG POC ABG pH 7.460 (7.35-7.45) H 10/02/17 21:10 POC ABG pCO2 32.3 (35-45) L 10/02/17 21:10 POC ABG pO2 92 (80-105) 10/02/17 21:10 POC ABG HCO3 23.0 10/02/17 21:10 POC ABG Total CO2 24 10/02/17 21:10 POC ABG O2 Sat 98 10/02/17 21:10 PT/INR, D-dimer PT 15.4 Sec. (12.2-14.9) H 10/02/17 20:26 INR 1.16 (0.87-1.13) H 10/02/17 20:26 Abnormal lab findings: Abnormal Labs 10/02/17 10/02/17 10/02/17 20:05 20:26 20:26 WBC 17.1 H RDW 12.9 L Plt Count 475 H Lymph % (Auto) 7.7 L [place] % (Auto) 7.6 H [place] # 1.3 H Seg Neutrophils % 84.4 H Seg Neutrophils # 14.5 H PT 15.4 H INR 1.16 H POC ABG pH POC ABG pCO2 Sodium Potassium Chloride Carbon Dioxide BUN Creatinine Glucose POC Glucose Lactic Acid Calcium Magnesium AST Total Creatine Kinase CK-MB (CK-2) Urine WBC (Auto) 8.0 H Salicylates Acetaminophen 10/02/17 10/02/17 10/02/17 20:26 20:26 20:53 WBC RDW Plt Count Lymph % (Auto) [place] % (Auto) [place] # Seg Neutrophils % Seg Neutrophils # PT INR POC ABG pH POC ABG pCO2 Sodium 151 H Potassium Chloride 112.5 H Carbon Dioxide 21 L BUN 37 H Creatinine Glucose 159 H POC Glucose Lactic Acid 3.10 H* Calcium Magnesium 2.40 H AST 113 H Total Creatine Kinase 5716 H CK-MB (CK-2) Urine WBC (Auto) Salicylates Acetaminophen 10/02/17 10/02/17 10/02/17 20:53 20:53 21:10 WBC RDW Plt Count Lymph % (Auto) [place] % (Auto) [place] # Seg Neutrophils % Seg Neutrophils # PT INR POC ABG pH 7.460 H POC ABG pCO2 32.3 L Sodium Potassium Chloride Carbon Dioxide BUN Creatinine Glucose POC Glucose Lactic Acid Calcium Magnesium AST Total Creatine Kinase CK-MB (CK-2) Urine WBC (Auto) Salicylates < 0.3 L Acetaminophen < 5.0 L 10/03/17 10/03/17 10/03/17 01:39 04:25 04:25 WBC 19.6 H RDW 12.5 L Plt Count Lymph % (Auto) [place] % (Auto) 9.4 H [place] # 1.8 H Seg Neutrophils % 74.2 H Seg Neutrophils # 14.5 H PT INR POC ABG pH POC ABG pCO2 Sodium 154 H Potassium Chloride 118.0 H Carbon Dioxide 21 L BUN 25 H Creatinine Glucose 117 H POC Glucose Lactic Acid Calcium 8.1 L Magnesium AST Total Creatine Kinase 5392 H CK-MB (CK-2) 40.1 H Urine WBC (Auto) Salicylates Acetaminophen 10/03/17 10/03/17 10/03/17 11:46 13:00 17:02 WBC RDW Plt Count Lymph % (Auto) [place] % (Auto) [place] # Seg Neutrophils % Seg Neutrophils # PT INR POC ABG pH POC ABG pCO2 Sodium Potassium Chloride Carbon Dioxide BUN Creatinine Glucose POC Glucose 117 H 106 H Lactic Acid Calcium Magnesium AST Total Creatine Kinase 3884 H CK-MB (CK-2) 21.0 H Urine WBC (Auto) Salicylates Acetaminophen 10/04/17 10/04/17 10/04/17 05:40 15:32 21:26 WBC RDW Plt Count Lymph % (Auto) [place] % (Auto) [place] # Seg Neutrophils % Seg Neutrophils # PT INR POC ABG pH POC ABG pCO2 Sodium Potassium 3.4 L Chloride Carbon Dioxide BUN 5 L Creatinine 0.6 L Glucose POC Glucose 110 H 116 H Lactic Acid Calcium Magnesium AST Total Creatine Kinase CK-MB (CK-2) Urine WBC (Auto) Salicylates Acetaminophen 10/05/17 10/05/17 10/05/17 05:23 05:23 12:17 WBC 12.2 H RDW 12.5 L Plt Count Lymph % (Auto) [place] % (Auto) [place] # Seg Neutrophils % Seg Neutrophils # PT INR POC ABG pH POC ABG pCO2 Sodium 135 L Potassium 3.0 L Chloride 96.2 L Carbon Dioxide BUN 4 L Creatinine 0.5 L Glucose 107 H POC Glucose 136 H Lactic Acid Calcium 8.3 L Magnesium AST Total Creatine Kinase CK-MB (CK-2) Urine WBC (Auto) Salicylates Acetaminophen
--- NOTE | 2017-10-05 14:53 | Progress Note ---
Assessment and Plan Acute encephalopathy. Systemic inflammatory response syndrome. Rhabdomyolysis. Hypernatremia. Elevated serum transaminases. History of bipolar disorder. History of schizophrenia. Mild metabolic acidosis - encephalopathy improved - stopped free water as hypernatremia resolved - continue enteral nutrition - continue swallow evaluation - continue aspiration precautions - get psychiatry evaluation and adjust meds per their recommendations - stopped antibiotics and following clinically - continue GI & VTE prophylaxis - PT/OT evaluation ongoing .... 25' Subjective Date of service: 10/05/17 Principal diagnosis: Acute Encephalopathy; SIRS; Hypernatremia; Rhabdomyolysis; Bipolar Disorder Interval history: Patient is seen today for: Acute Encephalopathy; SIRS; Hypernatremia; Rhabdomyolysis; Bipolar Disorder Seen and examined at bedside; 24hour events reviewed; nursing and respiratory care staff consulted; no adverse overnight events reported to me; resting in bed ; more alert but still with tangential thought pattern and incoherent verbage. No N/V/F/C Objective Vital Signs - 12hr 10/05/17 10/05/17 07:29 10:00 Temperature 98.1 F Pulse Rate 105 H Respiratory 19 Rate Blood Pressure 136/78 O2 Sat by Pulse 98 99 Oximetry Constitutional: no acute distress, other (middle aged AAF; normocephalic and atraumatic in no acute respiratory distress) Eyes: non-icteric ENT: oropharynx moist, other (m[place]amp[place] II) Neck: supple, no lymphadenopathy, no JVD, other (no thyromegaly) Effort: mildly labored Ascultation: Bilateral: clear Percussion: Bilateral: not dull Cardiovascular: regular rate and rhythm, other (no R/M) Gastrointestinal: normoactive bowel sounds, soft, non-tender, non-distended, other (No HSM) Integumentary: other (left thigh tender indurated 4X6 cm area improving) Extremities: no cyanosis, no edema, pulses normal, no ischemia or petechiae Neurologic: non-focal exam, pupils equal and round, CN II-XII normal, motor strength normal and Psychiatric: other (bipolar; schizoid) CBC and BMP: 10/05/17 05:23 10/05/17 05:23 ABG, PT/INR, D-dimer: ABG POC ABG pH 7.460 (7.35-7.45) H 10/02/17 21:10 POC ABG pCO2 32.3 (35-45) L 10/02/17 21:10 POC ABG pO2 92 (80-105) 10/02/17 21:10 POC ABG HCO3 23.0 10/02/17 21:10 POC ABG Total CO2 24 10/02/17 21:10 POC ABG O2 Sat 98 10/02/17 21:10 PT/INR, D-dimer PT 15.4 Sec. (12.2-14.9) H 10/02/17 20:26 INR 1.16 (0.87-1.13) H 10/02/17 20:26 Abnormal lab findings: Abnormal Labs 10/02/17 10/02/17 10/02/17 20:05 20:26 20:26 WBC 17.1 H RDW 12.9 L Plt Count 475 H Lymph % (Auto) 7.7 L [place] % (Auto) 7.6 H [place] # 1.3 H Seg Neutrophils % 84.4 H Seg Neutrophils # 14.5 H PT 15.4 H INR 1.16 H POC ABG pH POC ABG pCO2 Sodium Potassium Chloride Carbon Dioxide BUN Creatinine Glucose POC Glucose Lactic Acid Calcium Magnesium AST Total Creatine Kinase CK-MB (CK-2) Urine WBC (Auto) 8.0 H Salicylates Acetaminophen 10/02/17 10/02/17 10/02/17 20:26 20:26 20:53 WBC RDW Plt Count Lymph % (Auto) [place] % (Auto) [place] # Seg Neutrophils % Seg Neutrophils # PT INR POC ABG pH POC ABG pCO2 Sodium 151 H Potassium Chloride 112.5 H Carbon Dioxide 21 L BUN 37 H Creatinine Glucose 159 H POC Glucose Lactic Acid 3.10 H* Calcium Magnesium 2.40 H AST 113 H Total Creatine Kinase 5716 H CK-MB (CK-2) Urine WBC (Auto) Salicylates Acetaminophen 10/02/17 10/02/17 10/02/17 20:53 20:53 21:10 WBC RDW Plt Count Lymph % (Auto) [place] % (Auto) [place] # Seg Neutrophils % Seg Neutrophils # PT INR POC ABG pH 7.460 H POC ABG pCO2 32.3 L Sodium Potassium Chloride Carbon Dioxide BUN Creatinine Glucose POC Glucose Lactic Acid Calcium Magnesium AST Total Creatine Kinase CK-MB (CK-2) Urine WBC (Auto) Salicylates < 0.3 L Acetaminophen < 5.0 L 10/03/17 10/03/17 10/03/17 01:39 04:25 04:25 WBC 19.6 H RDW 12.5 L Plt Count Lymph % (Auto) [place] % (Auto) 9.4 H [place] # 1.8 H Seg Neutrophils % 74.2 H Seg Neutrophils # 14.5 H PT INR POC ABG pH POC ABG pCO2 Sodium 154 H Potassium Chloride 118.0 H Carbon Dioxide 21 L BUN 25 H Creatinine Glucose 117 H POC Glucose Lactic Acid Calcium 8.1 L Magnesium AST Total Creatine Kinase 5392 H CK-MB (CK-2) 40.1 H Urine WBC (Auto) Salicylates Acetaminophen 10/03/17 10/03/17 10/03/17 11:46 13:00 17:02 WBC RDW Plt Count Lymph % (Auto) [place] % (Auto) [place] # Seg Neutrophils % Seg Neutrophils # PT INR POC ABG pH POC ABG pCO2 Sodium Potassium Chloride Carbon Dioxide BUN Creatinine Glucose POC Glucose 117 H 106 H Lactic Acid Calcium Magnesium AST Total Creatine Kinase 3884 H CK-MB (CK-2) 21.0 H Urine WBC (Auto) Salicylates Acetaminophen 10/04/17 10/04/17 10/04/17 05:40 15:32 21:26 WBC RDW Plt Count Lymph % (Auto) [place] % (Auto) [place] # Seg Neutrophils % Seg Neutrophils # PT INR POC ABG pH POC ABG pCO2 Sodium Potassium 3.4 L Chloride Carbon Dioxide BUN 5 L Creatinine 0.6 L Glucose POC Glucose 110 H 116 H Lactic Acid Calcium Magnesium AST Total Creatine Kinase CK-MB (CK-2) Urine WBC (Auto) Salicylates Acetaminophen 10/05/17 10/05/17 10/05/17 05:23 05:23 12:17 WBC 12.2 H RDW 12.5 L Plt Count Lymph % (Auto) [place] % (Auto) [place] # Seg Neutrophils % Seg Neutrophils # PT INR POC ABG pH POC ABG pCO2 Sodium 135 L Potassium 3.0 L Chloride 96.2 L Carbon Dioxide BUN 4 L Creatinine 0.5 L Glucose 107 H POC Glucose 136 H Lactic Acid Calcium 8.3 L Magnesium AST Total Creatine Kinase CK-MB (CK-2) Urine WBC (Auto) Salicylates Acetaminophen Allied health notes reviewed: nursing
[2017-10-05] MEDS: ATIVAN PO SCH (22:33)
[2017-10-06] MEDS: COGENTIN IV SCH ×2 (03:33→14:17)
[2017-10-06] MEDS: D5W 1,000 ML IV SCH ×2 (03:34→14:17)
--- NOTE | 2017-10-06 07:00 | Progress Note ---
Assessment and Plan Assessment and plan: Per HPI documentation 52 year old woman with bipolar, schizophrenia was brought to the ER for evaluation of altered mental status. No further history is available. A lumbar puncture was done and the patient was treat emperically for meningitis and possible NMS, however poison control recommend supportive care. A ROS is unobtainable EMS reported that [facility], unknown baseline mental status Acute Encephalopathy Unkown Etiology * CT brain negative. * R/O Serotonin syndrome-Less likely * Neurology and Pysch consultation-input noted. EEG negative. * lumber puncture serology AND crypto culture negative for Bacterial Meningitis * ?Acute cystitis * Await cultures-no growth. SIRS * POA, Leukocytosis, Tachycardia, * Continue vancomycin and zosyn D#4-Descalate in AM * cxr is negative for acute disease * s/p one dose Acyclovir. Hypernatermia * Improved, stop D5 once tolerating diet. Mildly elevated CPK.-Possible Mild Rhabdomylysis * EKG on admission-Sinus tachycardia, normal axis, motion artifact, QTC prolonged, abnormal EKG, not a STEMI per ER. Not available for my review Bipolar disorder * Restart home meds * Awaiting Psych eval Longterm Resident * Will return on discharge Schizophrenia * On Respiradone and ativan on MED REC * Resume PRN ativan to prevent withdrawal FEN * Continue tube feed * Aspiration Precautions. DVT/GI prophy No family present History Interval history: Patient seen and examined still confused this morning, but more awake although speaking, not making any sense and appears to be confabulating. Hospitalist Physical - Physical exam Narrative exam: Gen. appearance: Patient lying in bed, no apparent distress HEENT: Normocephalic, atraumatic, pupils equally round and reactive to light, pinpoint, unable to do extraocular movement, and no sclericterus,. No JVD or thyromegaly or nodule,neck supple, no carotid bruit ,mucous membranes moist, no exudate or erythema Heart: S1, S2, regular rate and rhythm Lungs: Clear anteriorly bilaterally, breathing comfortable Abdomen: Positive bowel sounds, soft, nondistended, no organomegaly Extremity:no edema, cyanosis, clubbing Neuro: awake and speaking but not making any sense. - Constitutional Vitals: Temp Pulse Resp BP Pulse Ox 98.2 F 91 H 18 105/68 100 10/05/17 23:35 06/16/18 23:35 10/05/17 23:35 10/05/17 23:35 10/05/17 23:35 Results - Labs CBC & Chem 7: 10/05/17 05:23 10/05/17 05:23 Labs: Laboratory Last Values WBC 12.2 K/mm3 (4.5-11.0) H 10/05/17 05:23 RBC 3.96 M/mm3 (3.65-5.03) 10/05/17 05:23 Hgb 12.2 gm/dl (10.1-14.3) 10/05/17 05:23 Hct 36.0 % (30.3-42.9) 10/05/17 05:23 MCV 91 fl (79-97) 10/05/17 05:23 MCH 31 pg (28-32) 10/05/17 05:23 MCHC 34 % (30-34) 10/05/17 05:23 RDW 12.5 % (13.2-15.2) L 10/05/17 05:23 Plt Count 397 K/mm3 (140-440) 10/05/17 05:23 Lymph % (Auto) 15.9 % (13.4-35.0) 10/03/17 04:25 [place] % (Auto) 9.4 % (0.0-7.3) H 10/03/17 04:25 Eos % (Auto) 0.1 % (0.0-4.3) 10/03/17 04:25 Baso % (Auto) 0.4 % (0.0-1.8) 10/03/17 04:25 Lymph # 3.1 K/mm3 (1.2-5.4) 10/03/17 04:25 [place] # 1.8 K/mm3 (0.0-0.8) H 10/03/17 04:25 Eos # 0.0 K/mm3 (0.0-0.4) 10/03/17 04:25 Baso # 0.1 K/mm3 (0.0-0.1) 10/03/17 04:25 Seg Neutrophils % 74.2 % (40.0-70.0) H 10/03/17 04:25 Seg Neutrophils # 14.5 K/mm3 (1.8-7.7) H 10/03/17 04:25 ESR 32 mm/Hr (0-20) 10/02/17 20:53 PT 15.4 Sec. (12.2-14.9) H 10/02/17 20:26 INR 1.16 (0.87-1.13) H 10/02/17 20:26 POC ABG pH 7.460 (7.35-7.45) H 10/02/17 21:10 POC ABG pCO2 32.3 (35-45) L 10/02/17 21:10 POC ABG pO2 92 (80-105) 10/02/17 21:10 POC ABG HCO3 23.0 10/02/17 21:10 POC ABG Total CO2 24 10/02/17 21:10 POC ABG O2 Sat 98 10/02/17 21:10 POC ABG Base Excess -1 10/02/17 21:10 VBG pH 7.387 (7.320-7.420) 10/02/17 20:26 FiO2 21 % 10/02/17 21:10 Sodium 135 mmol/L (137-145) L 10/05/17 05:23 Potassium 3.0 mmol/L (3.6-5.0) L 10/05/17 05:23 Chloride 96.2 mmol/L (98-107) L 10/05/17 05:23 Carbon Dioxide 24 mmol/L (22-30) 10/05/17 05:23 Anion Gap 18 mmol/L 10/05/17 05:23 BUN 4 mg/dL (7-17) L 10/05/17 05:23 Creatinine 0.5 mg/dL (0.7-1.2) L 10/05/17 05:23 Estimated GFR > 60 ml/min 10/05/17 05:23 BUN/Creatinine Ratio 8 % 10/05/17 05:23 Glucose 107 mg/dL (65-100) H 10/05/17 05:23 POC Glucose 112 (70-105) H 10/06/17 00:00 Lactic Acid 1.30 mmol/L (0.7-2.0) 10/02/17 23:41 Calcium 8.3 mg/dL (8.4-10.2) L 10/05/17 05:23 Magnesium 2.40 mg/dL (1.7-2.3) H 10/02/17 20:53 Total Bilirubin 0.50 mg/dL (0.1-1.2) 10/02/17 20:26 AST 113 units/L (5-40) H 10/02/17 20:26 ALT 43 units/L (7-56) 10/02/17 20:26 Alkaline Phosphatase 76 units/L (35-129) 10/02/17 20:26 Total Creatine Kinase 3884 units/L (30-135) H 10/03/17 13:00 CK-MB (CK-2) 21.0 ng/mL (0.0-4.0) H 10/03/17 13:00 CK-MB (CK-2) Rel Index 0.5 (0-4) 10/03/17 13:00 Troponin T < 0.010 ng/mL (0.00-0.029) 10/03/17 13:00 C-Reactive Protein 0.90 mg/dL (0.00-1.30) 10/02/17 20:53 Total Protein 7.3 g/dL (6.3-8.2) 10/02/17 20: Albumin 4.0 g/dL (3.9-5) 10/02/17 20: Albumin/Globulin Ratio 1.2 % 10/02/17 20: Urine Color Yellow (Yellow) 10/02/17 20:05 Urine Turbidity Clear (Clear) 10/02/17 20:05 Urine pH 5.0 (5.0-7.0) 10/02/17 20:05 Ur Specific [place] 1.028 (1.003-1.030) 10/02/17 20:05 Urine Protein >500 mg/dL (Negative) 10/02/17 20:05 Urine Glucose (UA) 50 mg/dL (Negative) 10/02/17 20:05 Urine Ketones 20 mg/dL (Negative) 10/02/17 20:05 Urine Blood Mod (Negative) 10/02/17 20:05 Urine Nitrite Neg (Negative) 10/02/17 20:05 Urine Bilirubin Neg (Negative) 10/02/17 20:05 Urine Urobilinogen < 2.0 mg/dL (<2.0) 10/02/17 20:05 Ur Leukocyte Esterase Neg (Negative) 10/02/17 20:05 Urine WBC (Auto) 8.0 /HPF (0.0-6.0) H 10/02/17 20:05 Urine RBC (Auto) 3.0 /HPF (0.0-6.0) 10/02/17 20:05 U Epithel Cells (Auto) 1.0 /HPF (0-13.0) 10/02/17 20:05 Urine Bacteria (Auto) 1+ /HPF (Negative) 10/02/17 20:05 Granular Casts 3 /LPF 10/02/17 20:05 Urine Mucus 2+ /HPF 10/02/17 20:05 CSF Appearance Clear 10/02/17 23:00 CSF Color Colorless 10/02/17 23:00 CSF WBC 2 /mm3 (1-10) 10/02/17 23:00 CSF RBC 54 /mm3 (0-0) 10/02/17 23:00 CSF Seg Neutrophils 14.3 % (0-6) 10/02/17 23:00 CSF Lymphocytes % 85.7 % (40-80) 10/02/17 23:00 CSF Reactive Lymphs 0 % 10/02/17 23:00 CSF Monocytes % 0 % (15-45) 10/02/17 23:00 CSF Eosinophils % 0 % 10/02/17 23:00 CSF Basophils 0 % 10/02/17 23:00 CSF Comment Diff performed 10/02/17 23:00 CSF Pathologist Review C 10/02/17 23:00 CSF Glucose 94 mg/dL 10/02/17 23:00 CSF Total Protein 56 mg/dL 10/02/17 23:00 Salicylates < 0.3 mg/dL (2.8-20.0) L 10/02/17 20:53 Acetaminophen < 5.0 ug/mL (10.0-30.0) L 10/02/17 20:53 [place] 0.1 mmol/L (0.0-1.2) 10/02/17 20:53
[2017-10-06] MEDS: LOVENOX SUB-Q SCH (10:00)
[2017-10-06] MEDS: SODIUM CHLORIDE FLUSH SYRINGE 10 ML IV SCH ×2 (10:00→22:59)
[2017-10-06] MEDS: RisperDAL PO SCH ×2 (10:00→22:59)
--- NOTE | 2017-10-06 13:10 | Progress Note ---
Assessment and Plan Acute encephalopathy. Systemic inflammatory response syndrome. Rhabdomyolysis. Hypernatremia. Elevated serum transaminases. History of bipolar disorder. History of schizophrenia. Mild metabolic acidosis - encephalopathy improved - stopped free water as hypernatremia resolved - continue enteral nutrition - continue swallow evaluation - continue aspiration precautions - psychiatry consult placed - stopped antibiotics and following clinically - continue GI & VTE prophylaxis - PT/OT evaluation ongoing .... 25' Subjective Date of service: 10/06/17 Principal diagnosis: Acute Encephalopathy; SIRS; Hypernatremia; Rhabdomyolysis; Bipolar Disorder Interval history: Patient is seen today for: Acute Encephalopathy; SIRS; Hypernatremia; Rhabdomyolysis; Bipolar Disorder Seen and examined at bedside; 24hour events reviewed; nursing and respiratory care staff consulted; no adverse overnight events reported to me; resting in bed ; more alert but hallucinating; tolerating tube feds otherwise Objective Vital Signs - 12hr 10/06/17 10/06/17 07:22 08:30 Temperature 97.7 F Pulse Rate 91 H Respiratory 19 Rate Blood Pressure 118/79 O2 Sat by Pulse 100 94 Oximetry Constitutional: no acute distress, other (middle aged AAF; normocephalic and atraumatic in no acute respiratory distress) Eyes: non-icteric ENT: oropharynx moist, other (mallampatti II) Neck: supple, no lymphadenopathy, no JVD, other (no thyromegaly) Effort: mildly labored Ascultation: Bilateral: clear Percussion: Bilateral: not dull Cardiovascular: regular rate and rhythm, other (no R/M) Gastrointestinal: normoactive bowel sounds, soft, non-tender, non-distended, other (No HSM) Integumentary: other (left thigh tender indurated 4X6 cm area improving) Extremities: no cyanosis, no edema, pulses normal, no ischemia or petechiae Neurologic: non-focal exam, pupils equal and round, CN II-XII normal, motor strength normal and Psychiatric: other (bipolar; schizoid) CBC and BMP: 10/05/17 05:23 10/05/17 05:23 ABG, PT/INR, D-dimer: ABG POC ABG pH 7.460 (7.35-7.45) H 10/02/17 21:10 POC ABG pCO2 32.3 (35-45) L 10/02/17 21:10 POC ABG pO2 92 (80-105) 10/02/17 21:10 POC ABG HCO3 23.0 10/02/17 21:10 POC ABG Total CO2 24 10/02/17 21:10 POC ABG O2 Sat 98 10/02/17 21:10 PT/INR, D-dimer PT 15.4 Sec. (12.2-14.9) H 10/02/17 20:26 INR 1.16 (0.87-1.13) H 10/02/17 20:26 Abnormal lab findings: Abnormal Labs 10/02/17 10/02/17 10/02/17 20:05 20:26 20:26 WBC 17.1 H RDW 12.9 L Plt Count 475 H Lymph % (Auto) 7.7 L [place] % (Auto) 7.6 H [place] # 1.3 H Seg Neutrophils % 84.4 H Seg Neutrophils # 14.5 H PT 15.4 H INR 1.16 H POC ABG pH POC ABG pCO2 Sodium Potassium Chloride Carbon Dioxide BUN Creatinine Glucose POC Glucose Lactic Acid Calcium Magnesium AST Total Creatine Kinase CK-MB (CK-2) Urine WBC (Auto) 8.0 H Salicylates Acetaminophen 10/02/17 10/02/17 10/02/17 20:26 20:26 20:53 WBC RDW Plt Count Lymph % (Auto) [place] % (Auto) [place] # Seg Neutrophils % Seg Neutrophils # PT INR POC ABG pH POC ABG pCO2 Sodium 151 H Potassium Chloride 112.5 H Carbon Dioxide 21 L BUN 37 H Creatinine Glucose 159 H POC Glucose Lactic Acid 3.10 H* Calcium Magnesium 2.40 H AST 113 H Total Creatine Kinase 5716 H CK-MB (CK-2) Urine WBC (Auto) Salicylates Acetaminophen 10/02/17 10/02/17 10/02/17 20:53 20:53 21:10 WBC RDW Plt Count Lymph % (Auto) [place] % (Auto) [place] # Seg Neutrophils % Seg Neutrophils # PT INR POC ABG pH 7.460 H POC ABG pCO2 32.3 L Sodium Potassium Chloride Carbon Dioxide BUN Creatinine Glucose POC Glucose Lactic Acid Calcium Magnesium AST Total Creatine Kinase CK-MB (CK-2) Urine WBC (Auto) Salicylates < 0.3 L Acetaminophen < 5.0 L 10/03/17 10/03/17 10/03/17 01:39 04:25 04:25 WBC 19.6 H RDW 12.5 L Plt Count Lymph % (Auto) [place] % (Auto) 9.4 H [place] # 1.8 H Seg Neutrophils % 74.2 H Seg Neutrophils # 14.5 H PT INR POC ABG pH POC ABG pCO2 Sodium 154 H Potassium Chloride 118.0 H Carbon Dioxide 21 L BUN 25 H Creatinine Glucose 117 H POC Glucose Lactic Acid Calcium 8.1 L Magnesium AST Total Creatine Kinase 5392 H CK-MB (CK-2) 40.1 H Urine WBC (Auto) Salicylates Acetaminophen 10/03/17 10/03/17 10/03/17 11:46 13:00 17:02 WBC RDW Plt Count Lymph % (Auto) [place] % (Auto) [place] # Seg Neutrophils % Seg Neutrophils # PT INR POC ABG pH POC ABG pCO2 Sodium Potassium Chloride Carbon Dioxide BUN Creatinine Glucose POC Glucose 117 H 106 H Lactic Acid Calcium Magnesium AST Total Creatine Kinase 3884 H CK-MB (CK-2) 21.0 H Urine WBC (Auto) Salicylates Acetaminophen 10/04/17 10/04/17 10/04/17 05:40 15:32 21:26 WBC RDW Plt Count Lymph % (Auto) [place] % (Auto) [place] # Seg Neutrophils % Seg Neutrophils # PT INR POC ABG pH POC ABG pCO2 Sodium Potassium 3.4 L Chloride Carbon Dioxide BUN 5 L Creatinine 0.6 L Glucose POC Glucose 110 H 116 H Lactic Acid Calcium Magnesium AST Total Creatine Kinase CK-MB (CK-2) Urine WBC (Auto) Salicylates Acetaminophen 10/05/17 10/05/17 10/05/17 05:23 05:23 12:17 WBC 12.2 H RDW 12.5 L Plt Count Lymph % (Auto) [place] % (Auto) [place] # Seg Neutrophils % Seg Neutrophils # PT INR POC ABG pH POC ABG pCO2 Sodium 135 L Potassium 3.0 L Chloride 96.2 L Carbon Dioxide BUN 4 L Creatinine 0.5 L Glucose 107 H POC Glucose 136 H Lactic Acid Calcium 8.3 L Magnesium AST Total Creatine Kinase CK-MB (CK-2) Urine WBC (Auto) Salicylates Acetaminophen 10/06/17 00:00 WBC RDW Plt Count Lymph % (Auto) [place] % (Auto) [place] # Seg Neutrophils % Seg Neutrophils # PT INR POC ABG pH POC ABG pCO2 Sodium Potassium Chloride Carbon Dioxide BUN Creatinine Glucose POC Glucose 112 H Lactic Acid Calcium Magnesium AST Total Creatine Kinase CK-MB (CK-2) Urine WBC (Auto) Salicylates Acetaminophen Allied health notes reviewed: nursing
--- NOTE | 2017-10-06 17:50 | Consultation ---
History of Present Illness - Reason for Consult Consult date: 10/06/17 Reason for consult: schizophrenia - Chief Complaint Chief complaint: unintelligible - History of Present Psychiatric Illness Ms. Luong is a 52-year-old female seen on the medical floor. She was brought to the hospital by ambulance for altered mental status. She lives in [facility] since July,. According to the record she was admitted to [facility] for psychosis and discharged to this personal group home. According to family reports and nursing staff, this is not her baseline. Her nurse states she is more alert today compared to yesterday. Today, she was speaking to her restraint mitten in unintelligible speech. Medications and Allergies Allergies Allergy/AdvReac Type Severity Reaction Status Date / Time Unable to Assess Allergy Unverified 10/02/17 20:11 Home Medications Medication Instructions Recorded Confirmed Last Taken Type LORazepam [Ativan] 1 mg PO TID 10/02/17 10/02/17 Unknown History risperiDONE [Risperdal] 2 mg PO BID 10/02/17 10/02/17 Unknown History Active Meds: Active Medications Acetaminophen (Tylenol) 650 mg PO Q4H PRN PRN Reason: Pain MILD(1-3)/Fever >100.5/WINTERS Lipase/Protease/Amylase (Pancreaze Dr 10,500 Unit) 1 each FEEDTUBE PRN PRN PRN Reason: For Clogged Feeding Tube Benztropine Mesylate (Cogentin) 1 mg IV Q12H [facility] Last Admin: 10/06/17 14:17 Dose: 1 mg Enoxaparin Sodium (Lovenox) 40 mg SUB-Q QDAY@1000 [facility] Last Admin: 10/06/17 10:00 Dose: 40 mg Dextrose (D5w) 1,000 mls @ 125 mls/hr IV DIRECT [facility] Last Admin: 10/06/17 14:17 Dose: 125 mls/hr Lorazepam (Ativan) 0.5 mg PO QHS [facility] Last Admin: 10/05/17 22:33 Dose: 0.5 mg Risperidone (Risperdal) 1 mg PO BID [facility] Last Admin: 10/06/17 10:00 Dose: 1 mg Simple Syrup (Simple Syrup) 15 ml FEEDTUBE PRN PRN PRN Reason: Hypoglycemia Simple Syrup (Simple Syrup) 30 ml FEEDTUBE PRN PRN PRN Reason: Hypoglycemia Sodium Bicarbonate (Sodium Bicarbonate) 325 mg FEEDTUBE PRN PRN PRN Reason: For Clogged Feeding Tube Sodium Chloride (Sodium Chloride Flush Syringe 10 Ml) 10 ml IV BID [facility] Last Admin: 10/06/17 10:00 Dose: 10 ml Sodium Chloride (Sodium Chloride Flush Syringe 10 Ml) 10 ml IV PRN PRN PRN Reason: LINE FLUSH Past psychiatric history - Past Medical History Past Medical History: other (Hypertension, Diabetes, Hyperlipidemia, CHF) - past Psychiatric treatment and history Psych: Bipolar, Schizophrenia psychiatric treatment history: per the record - Social History Social history: other (She has been in the [facility] since july, and prior to that with family) Mental Status Exam - Vital signs Last Vital Signs Temp 98.2 F 10/06/17 14:50 Pulse 91 H 10/06/17 07:22 Resp 18 10/06/17 14:50 BP 102/57 10/06/17 14:50 Pulse Ox 94 10/06/17 08:30 - Exam Narrative exam: unable to assess Results Result Diagrams: 10/05/17 05:23 10/05/17 05:23 Abnormal lab results 10/06/17 10/06/17 Range/Units 00:00 16:22 POC Glucose 112 H 123 H (70-105) All other labs normal. Assessment and Plan Assessment and plan: Impression: Acute encephalopathy. schizophrenia per history Medical diagnoses: Systemic inflammatory response syndrome. Rhabdomyolysis. Hypernatremia. Recommendations: Continue risperdal 1mg bid and ativan 0.5mg hs as ordered by the medical provider Treat underlying medical conditions Psych will monitor mental status daily Recommend Delirium precautions below: 1. Frequently reorient patient and involve him/her in their care (simple explanations of procedures, tests, medications). 2. Lights on and shades open during daytime hours. 3. Write date and goals of care in a visible place. 4. Try to avoid unnecessary interruptions to sleep during nighttime hours. 5. Obtain glasses, hearing aids from home if patient uses these at baseline. 6. Avoid medications that may exacerbate delirium (especially narcotics, benzodiazepines, barbiturates, ambien, lunesta, and medications with excessive anticholinergic properties). Ativan 0.5mg hs is ordered by medical. Continuing the current regimen is recommended since she is reported to be improving.
[2017-10-06] MEDS: ATIVAN PO SCH (22:59)
[2017-10-07] MEDS: D5W 1,000 ML IV SCH ×3 (03:02→18:35)
[2017-10-07] MEDS: COGENTIN IV SCH (03:02)
[2017-10-07] MEDS: LOVENOX SUB-Q SCH (10:27)
[2017-10-07] MEDS: RisperDAL PO SCH ×2 (10:27→21:51)
[2017-10-07] MEDS: SODIUM CHLORIDE FLUSH SYRINGE 10 ML IV SCH ×2 (10:30→21:51)
--- NOTE | 2017-10-07 12:29 | Progress Note ---
Subjective - Reason for Consult Consult date: 10/07/17 Reason for consult: Psychiatry Follow-up - Chief Complaint Chief complaint: "AMS" 52-year-old female seen on the medical floor. She was brought to the hospital by ambulance for altered mental status. She lives in [facility] since July,. Today the patient is calm, but confused during the assessment. Per collateral information from her daughter Leonela Luong at [phone], she stated that her mother has a psychotic do and was a patient at [facility] in July 2017. She stated that her mother takes Risperdal and Ativan. She denies that her mother takes Cogentin. She stated that her mother is seen at [facility] for outpatient psy services. Per the staff, no behavioral disturbances overnight. The patient is pending a swallowing eval. Mental Status Exam - Vital signs Last Vital Signs Temp 98.7 F 10/07/17 07:30 Pulse 80 10/07/17 07:30 Resp 19 10/07/17 07:30 BP 113/72 10/07/17 07:30 Pulse Ox 86 10/07/17 07:30 - Exam Narrative exam: The MSE could not be completed at this time because of the patient's condition. Assessment and Plan Impression: Schizophrenia per history. Today the patient is calm, but confused during the assessment. The patient isn't in restraints, but have on mittens. Medical diagnoses: Acute Encephalopathy, SIRS, Rhabdomyolysis, and Hypernatremia. Recommendations/Plan: Continue Risperdal 1 mg PO BID and Ativan 0.5 mg PO HS as ordered by the medical provider. Treat underlying medical conditions. Psych will monitor mental status daily. The patient can follow up at [facility] once discharged per her daughter Leonela Luong. Recommend Delirium precautions below: 1. Frequently reorient patient and involve him/her in their care (simple explanations of procedures, tests, medications). 2. Lights on and shades open during daytime hours. 3. Write date and goals of care in a visible place. 4. Try to avoid unnecessary interruptions to sleep during nighttime hours. 5. Obtain glasses, hearing aids from home if patient uses these at baseline. 6. Avoid medications that may exacerbate delirium (especially narcotics, benzodiazepines, barbiturates, ambien, lunesta, and medications with excessive anticholinergic properties). Ativan 0.5 mg PO HS is ordered by medical. Continuing the current regimen is recommended since she is reported to be improving, it's a home medication, and to prevent benzo withdrawals.
--- NOTE | 2017-10-07 13:10 | Progress Note ---
Assessment and Plan Acute encephalopathy. Systemic inflammatory response syndrome. Rhabdomyolysis. Hypernatremia. Elevated serum transaminases. History of bipolar disorder. History of schizophrenia. Mild metabolic acidosis - stopped qhs ativan and will avoid benzo's as possible - stopped free water as hypernatremia resolved - continue enteral nutrition - continue swallow evaluation - continue aspiration precautions - psychiatry consult placed - stopped antibiotics and following clinically - continue GI & VTE prophylaxis - PT/OT evaluation ongoing .... 25' Subjective Date of service: 10/07/17 Principal diagnosis: Acute Encephalopathy; SIRS; Hypernatremia; Rhabdomyolysis; Bipolar Disorder Interval history: Patient is seen today for: Acute Encephalopathy; SIRS; Hypernatremia; Rhabdomyolysis; Bipolar Disorder Seen and examined at bedside; 24hour events reviewed; nursing and respiratory care staff consulted; no adverse overnight events reported to me; resting in bed ; seen by psychiatry team and suspicion is more-so for acute delirium over active psychosis Objective Vital Signs - 12hr 10/07/17 07:30 Temperature 98.7 F Pulse Rate 80 Respiratory 19 Rate Blood Pressure 113/72 O2 Sat by Pulse 86 Oximetry Constitutional: no acute distress, other (middle aged AAF; normocephalic and atraumatic in no acute respiratory distress) Eyes: non-icteric ENT: oropharynx moist, other (mallampatti II) Neck: supple, no lymphadenopathy, no JVD, other (no thyromegaly) Effort: mildly labored Ascultation: Bilateral: clear Percussion: Bilateral: not dull Cardiovascular: regular rate and rhythm, other (no R/M) Gastrointestinal: normoactive bowel sounds, soft, non-tender, non-distended, other (No HSM) Integumentary: other (left thigh tender indurated 4X6 cm area improving) Extremities: no cyanosis, no edema, pulses normal, no ischemia or petechiae Neurologic: non-focal exam, pupils equal and round, CN II-XII normal, motor strength normal and Psychiatric: other (bipolar; schizoid) CBC and BMP: 10/05/17 05:23 10/05/17 05:23 ABG, PT/INR, D-dimer: ABG POC ABG pH 7.460 (7.35-7.45) H 10/02/17 21:10 POC ABG pCO2 32.3 (35-45) L 10/02/17 21:10 POC ABG pO2 92 (80-105) 10/02/17 21:10 POC ABG HCO3 23.0 10/02/17 21:10 POC ABG Total CO2 24 10/02/17 21:10 POC ABG O2 Sat 98 10/02/17 21:10 PT/INR, D-dimer PT 15.4 Sec. (12.2-14.9) H 10/02/17 20:26 INR 1.16 (0.87-1.13) H 10/02/17 20:26 Abnormal lab findings: Abnormal Labs 10/02/17 10/02/17 10/02/17 20:05 20:26 20:26 WBC 17.1 H RDW 12.9 L Plt Count 475 H Lymph % (Auto) 7.7 L Coleman % (Auto) 7.6 H Coleman # 1.3 H Seg Neutrophils % 84.4 H Seg Neutrophils # 14.5 H PT 15.4 H INR 1.16 H POC ABG pH POC ABG pCO2 Sodium Potassium Chloride Carbon Dioxide BUN Creatinine Glucose POC Glucose Lactic Acid Calcium Magnesium AST Total Creatine Kinase CK-MB (CK-2) Urine WBC (Auto) 8.0 H Salicylates Acetaminophen 10/02/17 10/02/17 10/02/17 20:26 20:26 20:53 WBC RDW Plt Count Lymph % (Auto) [place] % (Auto) Coleman # Seg Neutrophils % Seg Neutrophils # PT INR POC ABG pH POC ABG pCO2 Sodium 151 H Potassium Chloride 112.5 H Carbon Dioxide 21 L BUN 37 H Creatinine Glucose 159 H POC Glucose Lactic Acid 3.10 H* Calcium Magnesium 2.40 H AST 113 H Total Creatine Kinase 5716 H CK-MB (CK-2) Urine WBC (Auto) Salicylates Acetaminophen 10/02/17 10/02/17 10/02/17 20:53 20:53 21:10 WBC RDW Plt Count Lymph % (Auto) [place] % (Auto) Coleman # Seg Neutrophils % Seg Neutrophils # PT INR POC ABG pH 7.460 H POC ABG pCO2 32.3 L Sodium Potassium Chloride Carbon Dioxide BUN Creatinine Glucose POC Glucose Lactic Acid Calcium Magnesium AST Total Creatine Kinase CK-MB (CK-2) Urine WBC (Auto) Salicylates < 0.3 L Acetaminophen < 5.0 L 10/03/17 10/03/17 10/03/17 01:39 04:25 04:25 WBC 19.6 H RDW 12.5 L Plt Count Lymph % (Auto) [place] % (Auto) 9.4 H Coleman # 1.8 H Seg Neutrophils % 74.2 H Seg Neutrophils # 14.5 H PT INR POC ABG pH POC ABG pCO2 Sodium 154 H Potassium Chloride 118.0 H Carbon Dioxide 21 L BUN 25 H Creatinine Glucose 117 H POC Glucose Lactic Acid Calcium 8.1 L Magnesium AST Total Creatine Kinase 5392 H CK-MB (CK-2) 40.1 H Urine WBC (Auto) Salicylates Acetaminophen 10/03/17 10/03/17 10/03/17 11:46 13:00 17:02 WBC RDW Plt Count Lymph % (Auto) [place] % (Auto) Coleman # Seg Neutrophils % Seg Neutrophils # PT INR POC ABG pH POC ABG pCO2 Sodium Potassium Chloride Carbon Dioxide BUN Creatinine Glucose POC Glucose 117 H 106 H Lactic Acid Calcium Magnesium AST Total Creatine Kinase 3884 H CK-MB (CK-2) 21.0 H Urine WBC (Auto) Salicylates Acetaminophen 10/04/17 10/04/17 10/04/17 05:40 15:32 21:26 WBC RDW Plt Count Lymph % (Auto) [place] % (Auto) Coleman # Seg Neutrophils % Seg Neutrophils # PT INR POC ABG pH POC ABG pCO2 Sodium Potassium 3.4 L Chloride Carbon Dioxide BUN 5 L Creatinine 0.6 L Glucose POC Glucose 110 H 116 H Lactic Acid Calcium Magnesium AST Total Creatine Kinase CK-MB (CK-2) Urine WBC (Auto) Salicylates Acetaminophen 10/05/17 10/05/17 10/05/17 05:23 05:23 12:17 WBC 12.2 H RDW 12.5 L Plt Count Lymph % (Auto) [place] % (Auto) Coleman # Seg Neutrophils % Seg Neutrophils # PT INR POC ABG pH POC ABG pCO2 Sodium 135 L Potassium 3.0 L Chloride 96.2 L Carbon Dioxide BUN 4 L Creatinine 0.5 L Glucose 107 H POC Glucose 136 H Lactic Acid Calcium 8.3 L Magnesium AST Total Creatine Kinase CK-MB (CK-2) Urine WBC (Auto) Salicylates Acetaminophen 10/06/17 10/06/17 10/07/17 00:00 16:22 03:23 WBC RDW Plt Count Lymph % (Auto) [place] % (Auto) Coleman # Seg Neutrophils % Seg Neutrophils # PT INR POC ABG pH POC ABG pCO2 Sodium Potassium Chloride Carbon Dioxide BUN Creatinine Glucose POC Glucose 112 H 123 H 126 H Lactic Acid Calcium Magnesium AST Total Creatine Kinase CK-MB (CK-2) Urine WBC (Auto) Salicylates Acetaminophen Allied health notes reviewed: nursing
--- NOTE | 2017-10-07 13:57 | Progress Note ---
Assessment and Plan Assessment and plan: Per HPI documentation 52 year old woman with bipolar, schizophrenia was brought to the ER for evaluation of altered mental status. No further history is available. A lumbar puncture was done and the patient was treat empirically for meningitis and possible NMS, but discontinued after serology did not prove to show meningitis. Discussion with the family member reported that patient has been in long term due to schizophrenia and bipolar disorder. She was seen by neurology no evidence of seizure was noted. Symptoms has improved. Today she passed a swallowing eval. Although still a little bit weak we'll monitor her for a 24- hour significant to this improved, discharged in the morning. Acute Encephalopathy Unkown Etiology * CT brain negative. * R/O Serotonin syndrome-Less likely * Neurology and Pysch consultation-input noted. EEG negative. * lumber puncture serology AND crypto culture negative for Bacterial Meningitis Acute cystitis * Await cultures-no growth. Treated with Levaquin and complete exam SIRS * POA, Leukocytosis, Tachycardia, * Continue vancomycin and zosyn D#6-was changed to Levaquin At discharge without antibiotics. * cxr is negative for acute disease * s/p one dose Acyclovir. Hypernatermia * Improved, stop D5 once tolerating diet.Continue Risperdal 1 mg PO BID and Ativan 0.5 mg PO HS as ordered by the medical provider. Treat underlying medical conditions.The patient can follow up at [facility] once discharged per her daughter Leonela Luong. Rhabdomylysis * Result following the fluids Bipolar disorder * Restart home meds as noted above * Psychiatric bruits noted Assisted Resident * Will return on discharge Schizophrenia * On Respiradone and ativan on MED REC * Resume PRN ativan to prevent withdrawal FEN * Continue tube feed * Aspiration Precautions. DVT/GI prophy No family present Discharge in a.m. back to long term. History Interval history: Patient seen and examined, more awake although speaking, answering some questions appropriately but often goes off on a tangent also speaking to herself Hospitalist Physical - Physical exam Narrative exam: Gen. appearance: Patient lying in bed, no apparent distress HEENT: Normocephalic, atraumatic, pupils equally round and reactive to light, pinpoint, unable to do extraocular movement, and no sclericterus,. No JVD or thyromegaly or nodule,neck supple, no carotid bruit ,mucous membranes moist, no exudate or erythema Heart: S1, S2, regular rate and rhythm Lungs: Clear anteriorly bilaterally, breathing comfortable Abdomen: Positive bowel sounds, soft, nondistended, no organomegaly Extremity:no edema, cyanosis, clubbing Neuro: awake and speaking but not making any sense. - Constitutional Vitals: Temp Pulse Resp BP Pulse Ox 98.7 F 80 19 113/72 86 10/07/17 07:30 10/07/17 07:30 10/07/17 07:30 10/07/17 07:30 10/07/17 07:30 Results - Labs CBC & Chem 7: 10/05/17 05:23 10/05/17 05:23 Labs: Laboratory Last Values WBC 12.2 K/mm3 (4.5-11.0) H 10/05/17 05:23 RBC 3.96 M/mm3 (3.65-5.03) 10/05/17 05:23 Hgb 12.2 gm/dl (10.1-14.3) 10/05/17 05:23 Hct 36.0 % (30.3-42.9) 10/05/17 05:23 MCV 91 fl (79-97) 10/05/17 05:23 MCH 31 pg (28-32) 10/05/17 05:23 MCHC 34 % (30-34) 10/05/17 05:23 RDW 12.5 % (13.2-15.2) L 10/05/17 05:23 Plt Count 397 K/mm3 (140-440) 10/05/17 05:23 Lymph % (Auto) 15.9 % (13.4-35.0) 10/03/17 04:25 [place] % (Auto) 9.4 % (0.0-7.3) H 10/03/17 04:25 Eos % (Auto) 0.1 % (0.0-4.3) 10/03/17 04:25 Baso % (Auto) 0.4 % (0.0-1.8) 10/03/17 04:25 Lymph # 3.1 K/mm3 (1.2-5.4) 10/03/17 04:25 [place] # 1.8 K/mm3 (0.0-0.8) H 10/03/17 04:25 Eos # 0.0 K/mm3 (0.0-0.4) 10/03/17 04:25 Baso # 0.1 K/mm3 (0.0-0.1) 10/03/17 04:25 Seg Neutrophils % 74.2 % (40.0-70.0) H 10/03/17 04:25 Seg Neutrophils # 14.5 K/mm3 (1.8-7.7) H 10/03/17 04:25 ESR 32 mm/Hr (0-20) 10/02/17 20:53 PT 15.4 Sec. (12.2-14.9) H 10/02/17 20:26 INR 1.16 (0.87-1.13) H 10/02/17 20:26 POC ABG pH 7.460 (7.35-7.45) H 10/02/17 21:10 POC ABG pCO2 32.3 (35-45) L 10/02/17 21:10 POC ABG pO2 92 (80-105) 10/02/17 21:10 POC ABG HCO3 23.0 10/02/17 21:10 POC ABG Total CO2 24 10/02/17 21:10 POC ABG O2 Sat 98 10/02/17 21:10 POC ABG Base Excess -1 10/02/17 21:10 VBG pH 7.387 (7.320-7.420) 10/02/17 20:26 FiO2 21 % 10/02/17 21:10 Sodium 135 mmol/L (137-145) L 10/05/17 05:23 Potassium 3.0 mmol/L (3.6-5.0) L 10/05/17 05:23 Chloride 96.2 mmol/L (98-107) L 10/05/17 05:23 Carbon Dioxide 24 mmol/L (22-30) 10/05/17 05:23 Anion Gap 18 mmol/L 10/05/17 05:23 BUN 4 mg/dL (7-17) L 10/05/17 05:23 Creatinine 0.5 mg/dL (0.7-1.2) L 10/05/17 05:23 Estimated GFR > 60 ml/min 10/05/17 05:23 BUN/Creatinine Ratio 8 % 10/05/17 05:23 Glucose 107 mg/dL (65-100) H 10/05/17 05:23 POC Glucose 88 (70-105) 10/07/17 06:32 Lactic Acid 1.30 mmol/L (0.7-2.0) 10/02/17 23:41 Calcium 8.3 mg/dL (8.4-10.2) L 10/05/17 05:23 Magnesium 2.40 mg/dL (1.7-2.3) H 10/02/17 20:53 Total Bilirubin 0.50 mg/dL (0.1-1.2) 10/02/17 20:26 AST 113 units/L (5-40) H 10/02/17 20:26 ALT 43 units/L (7-56) 10/02/17 20:26 Alkaline Phosphatase 76 units/L (35-129) 10/02/17 20:26 Total Creatine Kinase 3884 units/L (30-135) H 10/03/17 13:00 CK-MB (CK-2) 21.0 ng/mL (0.0-4.0) H 10/03/17 13:00 CK-MB (CK-2) Rel Index 0.5 (0-4) 10/03/17 13:00 Troponin T < 0.010 ng/mL (0.00-0.029) 10/03/17 13:00 C-Reactive Protein 0.90 mg/dL (0.00-1.30) 10/02/17 20:53 Total Protein 7.3 g/dL (6.3-8.2) 10/02/17 20: Albumin 4.0 g/dL (3.9-5) 10/02/17 20: Albumin/Globulin Ratio 1.2 % 10/02/17 20:26 Urine Color Yellow (Yellow) 10/02/17 20:05 Urine Turbidity Clear (Clear) 10/02/17 20:05 Urine pH 5.0 (5.0-7.0) 10/02/17 20:05 Ur Specific [place] 1.028 (1.003-1.030) 10/02/17 20:05 Urine Protein >500 mg/dL (Negative) 10/02/17 20:05 Urine Glucose (UA) 50 mg/dL (Negative) 10/02/17 20: Urine Ketones 20 mg/dL (Negative) 10/02/17 20:05 Urine Blood Mod (Negative) 10/02/17 20:05 Urine Nitrite Neg (Negative) 10/02/17 20:05 Urine Bilirubin Neg (Negative) 10/02/17 20:05 Urine Urobilinogen < 2.0 mg/dL (<2.0) 10/02/17 20:05 Ur Leukocyte Esterase Neg (Negative) 10/02/17 20:05 Urine WBC (Auto) 8.0 /HPF (0.0-6.0) H 10/02/17 20:05 Urine RBC (Auto) 3.0 /HPF (0.0-6.0) 10/02/17 20:05 U Epithel Cells (Auto) 1.0 /HPF (0-13.0) 10/02/17 20:05 Urine Bacteria (Auto) 1+ /HPF (Negative) 10/02/17 20:05 Granular Casts 3 /LPF 10/02/17 20:05 Urine Mucus 2+ /HPF 10/02/17 20:05 CSF Appearance Clear 10/02/17 23:00 CSF Color Colorless 10/02/17 23:00 CSF WBC 2 /mm3 (1-10) 10/02/17 23:00 CSF RBC 54 /mm3 (0-0) 10/02/17 23:00 CSF Seg Neutrophils 14.3 % (0-6) 10/02/17 23:00 CSF Lymphocytes % 85.7 % (40-80) 10/02/17 23:00 CSF Reactive Lymphs 0 % 10/02/17 23:00 CSF Monocytes % 0 % (15-45) 10/02/17 23:00 CSF Eosinophils % 0 % 10/02/17 23:00 CSF Basophils 0 % 10/02/17 23:00 CSF Comment Diff performed 10/02/17 23:00 CSF Pathologist Review C 10/02/17 23:00 CSF Glucose 94 mg/dL 10/02/17 23:00 CSF Total Protein 56 mg/dL 10/02/17 23:00 Salicylates < 0.3 mg/dL (2.8-20.0) L 10/02/17 20:53 Acetaminophen < 5.0 ug/mL (10.0-30.0) L 10/02/17 20:53 [place] 0.1 mmol/L (0.0-1.2) 10/02/17 20:53
[2017-10-07] MEDS ORDERED: COGENTIN PO SCH (22:00)
[2017-10-08] MEDS: D5W 1,000 ML IV SCH ×3 (01:49→17:54)
[2017-10-08 07:19] LABS: BUN/Creatinine Ratio 10; Blood Urea Nitrogen 5 mg/dL (7-17); Calcium 8.7 mg/dL (8.4-10.2); Hemolysis Index 1
[2017-10-08] MEDS: LOVENOX SUB-Q SCH (09:59)
[2017-10-08] MEDS: RisperDAL PO SCH ×2 (09:59→21:57)
[2017-10-08] MEDS: SODIUM CHLORIDE FLUSH SYRINGE 10 ML IV SCH ×2 (10:01→21:57)
--- NOTE | 2017-10-08 10:23 | Progress Note ---
Assessment and Plan Assessment and plan: Per HPI documentation 52 year old woman with bipolar, schizophrenia was brought to the ER for evaluation of altered mental status. No further history is available. A lumbar puncture was done and the patient was treat empirically for meningitis and possible NMS, but discontinued after serology did not prove to show meningitis. Discussion with the family member reported that patient has been in alf due to schizophrenia and bipolar disorder. She was seen by neurology no evidence of seizure was noted. Symptoms has improved. Today she passed a swallowing eval. Although still a little bit weak we'll monitor her for a 24- hour significant to this improved, discharged in the morning. ?SEIZURE THIS AM * EEG * MRI Acute Encephalopathy Unkown Etiology * CT brain negative. * R/O Serotonin syndrome-Less likely * Neurology and Pysch consultation-input noted. EEG negative. * lumber puncture serology AND crypto culture negative for Bacterial Meningitis Acute cystitis * Await cultures-no growth. Treated with Levaquin and complete exam SIRS * POA, Leukocytosis, Tachycardia, * Continue vancomycin and zosyn D#6-was changed to Levaquin At discharge without antibiotics. * Cxr is negative for acute disease * s/p one dose Acyclovir. Hypernatermia * Improved, stop D5 once tolerating diet.Continue Risperdal 1 mg PO BID and Ativan 0.5 mg PO HS as ordered by the medical provider. Treat underlying medical conditions.The patient can follow up at [facility] once discharged per her daughter Leonela Luong. Rhabdomlysis * Result following the fluids Bipolar disorder * Restart home meds as noted above * Psychiatric bruits noted [facility] Resident * Will return on discharge Schizophrenia * On Respiradone and ativan on MED REC * Resume PRN ativan to prevent withdrawal FEN * Continue tube feed * Aspiration Precautions. DVT/GI prophy No family present Discharge in a.m. back to alf. History Interval history: Patient seen and examined, nursing staff today reports witnessed seizure episode. Patient remains confused, staring in space and then began having conversation Hospitalist Physical - Physical exam Narrative exam: Gen. appearance: Patient lying in bed, no apparent distress HEENT: Normocephalic, atraumatic, pupils equally round and reactive to light, pinpoint, unable to do extraocular movement, and no sclericterus,. No JVD or thyromegaly or nodule,neck supple, no carotid bruit ,mucous membranes moist, no exudate or erythema Heart: S1, S2, regular rate and rhythm Lungs: Clear anteriorly bilaterally, breathing comfortable Abdomen: Positive bowel sounds, soft, nondistended, no organomegaly Extremity:no edema, cyanosis, clubbing Neuro: Lathergic - Constitutional Vitals: Temp Pulse Resp BP Pulse Ox 97.8 F 118 H 16 128/75 98 10/08/17 08:05 10/08/17 09:39 10/08/17 08:05 10/08/17 09:39 10/08/17 09:39 Results - Labs CBC & Chem 7: 10/05/17 05:23 10/08/17 05:50 Labs: Laboratory Last Values WBC 12.2 K/mm3 (4.5-11.0) H 10/05/17 05:23 RBC 3.96 M/mm3 (3.65-5.03) 10/05/17 05:23 Hgb 12.2 gm/dl (10.1-14.3) 10/05/17 05:23 Hct 36.0 % (30.3-42.9) 10/05/17 05:23 MCV 91 fl (79-97) 10/05/17 05:23 MCH 31 pg (28-32) 10/05/17 05:23 MCHC 34 % (30-34) 10/05/17 05:23 RDW 12.5 % (13.2-15.2) L 10/05/17 05:23 Plt Count 397 K/mm3 (140-440) 10/05/17 05:23 Lymph % (Auto) 15.9 % (13.4-35.0) 10/03/17 04:25 [place] % (Auto) 9.4 % (0.0-7.3) H 10/03/17 04:25 Eos % (Auto) 0.1 % (0.0-4.3) 10/03/17 04:25 Baso % (Auto) 0.4 % (0.0-1.8) 10/03/17 04:25 Lymph # 3.1 K/mm3 (1.2-5.4) 10/03/17 04:25 [place] # 1.8 K/mm3 (0.0-0.8) H 10/03/17 04:25 Eos # 0.0 K/mm3 (0.0-0.4) 10/03/17 04:25 Baso # 0.1 K/mm3 (0.0-0.1) 10/03/17 04:25 Seg Neutrophils % 74.2 % (40.0-70.0) H 10/03/17 04:25 Seg Neutrophils # 14.5 K/mm3 (1.8-7.7) H 10/03/17 04:25 ESR 32 mm/Hr (0-20) 10/02/17 20:53 PT 15.4 Sec. (12.2-14.9) H 10/02/17 20:26 INR 1.16 (0.87-1.13) H 10/02/17 20:26 POC ABG pH 7.460 (7.35-7.45) H 10/02/17 21:10 POC ABG pCO2 32.3 (35-45) L 10/02/17 21:10 POC ABG pO2 92 (80-105) 10/02/17 21:10 POC ABG HCO3 23.0 10/02/17 21:10 POC ABG Total CO2 24 10/02/17 21:10 POC ABG O2 Sat 98 10/02/17 21:10 POC ABG Base Excess -1 10/02/17 21:10 VBG pH 7.387 (7.320-7.420) 10/02/17 20:26 FiO2 21 % 10/02/17 21:10 Sodium 138 mmol/L (137-145) 10/08/17 05:50 Potassium 3.0 mmol/L (3.6-5.0) L 10/08/17 05:50 Chloride 94.4 mmol/L (98-107) L 10/08/17 05:50 Carbon Dioxide 32 mmol/L (22-30) H D 10/08/17 05:50 Anion Gap 15 mmol/L 10/08/17 05:50 BUN 5 mg/dL (7-17) L 10/08/17 05:50 Creatinine 0.5 mg/dL (0.7-1.2) L 10/08/17 05:50 Estimated GFR > 60 ml/min 10/08/17 05:50 BUN/Creatinine Ratio 10 % 10/08/17 05:50 Glucose 111 mg/dL (65-100) H 10/08/17 05:50 POC Glucose 130 (70-105) H 10/08/17 07:00 Lactic Acid 1.30 mmol/L (0.7-2.0) 10/02/17 23:41 Calcium 8.7 mg/dL (8.4-10.2) 10/08/17 05:50 Magnesium 2.40 mg/dL (1.7-2.3) H 10/02/17 20:53 Total Bilirubin 0.50 mg/dL (0.1-1.2) 10/02/17 20:26 AST 113 units/L (5-40) H 10/02/17 20:26 ALT 43 units/L (7-56) 10/02/17 20:26 Alkaline Phosphatase 76 units/L (35-129) 10/02/17 20:26 Total Creatine Kinase 451 units/L (30-135) H 10/07/17 14:58 CK-MB (CK-2) 21.0 ng/mL (0.0-4.0) H 10/03/17 13:00 CK-MB (CK-2) Rel Index 0.5 (0-4) 10/03/17 13:00 Troponin T < 0.010 ng/mL (0.00-0.029) 10/03/17 13:00 C-Reactive Protein 0.90 mg/dL (0.00-1.30) 10/02/17 20:53 Total Protein 7.3 g/dL (6.3-8.2) 10/02/17 20: Albumin 4.0 g/dL (3.9-5) 10/02/17 20:26 Albumin/Globulin Ratio 1.2 % 10/02/17 20:26 Urine Color Yellow (Yellow) 10/02/17 20:05 Urine Turbidity Clear (Clear) 10/02/17 20:05 Urine pH 5.0 (5.0-7.0) 10/02/17 20:05 Ur Specific [place] 1.028 (1.003-1.030) 10/02/17 20:05 Urine Protein >500 mg/dL (Negative) 10/02/17 20:05 Urine Glucose (UA) 50 mg/dL (Negative) 10/02/17 20:05 Urine Ketones 20 mg/dL (Negative) 10/02/17 20:05 Urine Blood Mod (Negative) 10/02/17 20:05 Urine Nitrite Neg (Negative) 10/02/17 20:05 Urine Bilirubin Neg (Negative) 10/02/17 20:05 Urine Urobilinogen < 2.0 mg/dL (<2.0) 10/02/17 20:05 Ur Leukocyte Esterase Neg (Negative) 10/02/17 20:05 Urine WBC (Auto) 8.0 /HPF (0.0-6.0) H 10/02/17 20:05 Urine RBC (Auto) 3.0 /HPF (0.0-6.0) 10/02/17 20:05 U Epithel Cells (Auto) 1.0 /HPF (0-13.0) 10/02/17 20:05 Urine Bacteria (Auto) 1+ /HPF (Negative) 10/02/17 20:05 Granular Casts 3 /LPF 10/02/17 20:05 Urine Mucus 2+ /HPF 10/02/17 20:05 CSF Appearance Clear 10/02/17 23:00 CSF Color Colorless 10/02/17 23:00 CSF WBC 2 /mm3 (1-10) 10/02/17 23:00 CSF RBC 54 /mm3 (0-0) 10/02/17 23:00 CSF Seg Neutrophils 14.3 % (0-6) 10/02/17 23:00 CSF Lymphocytes % 85.7 % (40-80) 10/02/17 23:00 CSF Reactive Lymphs 0 % 10/02/17 23:00 CSF Monocytes % 0 % (15-45) 10/02/17 23:00 CSF Eosinophils % 0 % 10/02/17 23:00 CSF Basophils 0 % 10/02/17 23:00 CSF Comment Diff performed 10/02/17 23:00 CSF Pathologist Review C 10/02/17 23:00 CSF Glucose 94 mg/dL 10/02/17 23:00 CSF Total Protein 56 mg/dL 10/02/17 23:00 Salicylates < 0.3 mg/dL (2.8-20.0) L 10/02/17 20:53 Acetaminophen < 5.0 ug/mL (10.0-30.0) L 10/02/17 20:53 [place] 0.1 mmol/L (0.0-1.2) 10/02/17 20:53
--- NOTE | 2017-10-08 13:50 | Progress Note ---
Subjective - Reason for Consult Consult date: 10/08/17 Reason for consult: Psychiatry Follow-up - Chief Complaint Chief complaint: "AMS" 52-year-old female seen on the medical floor. She was brought to the hospital by ambulance for altered mental status. She lives in [facility] since July,. Today the patient is calm, but still confused during the assessment. Per the patient's assigned RN, she stated that another staff member may have witnessed a seizure by the patient. This information was forwarded to the patient's assigned Hospitalist. Per the staff, no behavioral disturbances overnight by the patient. Mental Status Exam - Vital signs Last Vital Signs Temp 97.8 F 10/08/17 08:05 Pulse 118 H 10/08/17 09:39 Resp 16 10/08/17 08:05 BP 128/75 10/08/17 09:39 Pulse Ox 98 10/08/17 09:39 - Exam Narrative exam: The MSE could not be completed at this time because of the patient's condition. Assessment and Plan Impression: Schizophrenia per history. Today the patient is calm, but confused during the assessment. The patient isn't in restraints, but have on mittens. Medical diagnoses: Acute Encephalopathy, SIRS, Rhabdomyolysis, and Hypernatremia. Recommendations/Plan: Continue Risperdal 1 mg PO BID and Ativan 0.5 mg PO HS as ordered by the medical provider. Treat underlying medical conditions. Psych will monitor mental status daily. The patient can follow up at [facility] once discharged per her daughter Leonela Luong. Recommend Delirium precautions below: 1. Frequently reorient patient and involve him/her in their care (simple explanations of procedures, tests, medications). 2. Lights on and shades open during daytime hours. 3. Write date and goals of care in a visible place. 4. Try to avoid unnecessary interruptions to sleep during nighttime hours. 5. Obtain glasses, hearing aids from home if patient uses these at baseline. 6. Avoid medications that may exacerbate delirium (especially narcotics, benzodiazepines, barbiturates, ambien, lunesta, and medications with excessive anticholinergic properties). Ativan 0.5 mg PO HS is ordered by the medical staff. Continuing the current regimen is recommended since she is reported to be improving, it's a home medication, and to prevent benzo withdrawals.
--- NOTE | 2017-10-08 18:36 | Progress Note ---
Subjective Date of service: 10/08/17 Principal diagnosis: Acute Encephalopathy; SIRS; Hypernatremia; Rhabdomyolysis; Bipolar Disorder Objective Vital Signs - 12hr 10/08/17 10/08/17 10/08/17 08:05 09:39 15:47 Temperature 97.8 F 97.8 F Pulse Rate 118 H Respiratory 16 16 Rate Blood Pressure 135/94 128/75 105/72 O2 Sat by Pulse 98 Oximetry Constitutional: no acute distress, other (middle aged AAF; normocephalic and atraumatic in no acute respiratory distress) Eyes: non-icteric ENT: oropharynx moist, other (mallampatti II) Neck: supple, no lymphadenopathy, no JVD, other (no thyromegaly) Effort: mildly labored Ascultation: Bilateral: clear Percussion: Bilateral: not dull Cardiovascular: regular rate and rhythm, other (no R/M) Gastrointestinal: normoactive bowel sounds, soft, non-tender, non-distended, other (No HSM) Integumentary: other (left thigh tender indurated 4X6 cm area improving) Extremities: no cyanosis, no edema, pulses normal, no ischemia or petechiae Neurologic: non-focal exam, pupils equal and round, CN II-XII normal, motor strength normal and Psychiatric: other (bipolar; schizoid) CBC and BMP: 10/05/17 05:23 10/08/17 05:50 ABG, PT/INR, D-dimer: ABG POC ABG pH 7.460 (7.35-7.45) H 10/02/17 21:10 POC ABG pCO2 32.3 (35-45) L 10/02/17 21:10 POC ABG pO2 92 (80-105) 10/02/17 21:10 POC ABG HCO3 23.0 10/02/17 21:10 POC ABG Total CO2 24 10/02/17 21:10 POC ABG O2 Sat 98 10/02/17 21:10 PT/INR, D-dimer PT 15.4 Sec. (12.2-14.9) H 10/02/17 20:26 INR 1.16 (0.87-1.13) H 10/02/17 20:26 Abnormal lab findings: Abnormal Labs 10/02/17 10/02/17 10/02/17 20:05 20:26 20:26 WBC 17.1 H RDW 12.9 L Plt Count 475 H Lymph % (Auto) 7.7 L [place] % (Auto) 7.6 H [place] # 1.3 H Seg Neutrophils % 84.4 H Seg Neutrophils # 14.5 H PT 15.4 H INR 1.16 H POC ABG pH POC ABG pCO2 Sodium Potassium Chloride Carbon Dioxide BUN Creatinine Glucose POC Glucose Lactic Acid Calcium Magnesium AST Total Creatine Kinase CK-MB (CK-2) Urine WBC (Auto) 8.0 H Salicylates Acetaminophen 10/02/17 10/02/17 10/02/17 20:26 20:26 20:53 WBC RDW Plt Count Lymph % (Auto) [place] % (Auto) [place] # Seg Neutrophils % Seg Neutrophils # PT INR POC ABG pH POC ABG pCO2 Sodium 151 H Potassium Chloride 112.5 H Carbon Dioxide 21 L BUN 37 H Creatinine Glucose 159 H POC Glucose Lactic Acid 3.10 H* Calcium Magnesium 2.40 H AST 113 H Total Creatine Kinase 5716 H CK-MB (CK-2) Urine WBC (Auto) Salicylates Acetaminophen 10/02/17 10/02/17 10/02/17 20:53 20:53 21:10 WBC RDW Plt Count Lymph % (Auto) [place] % (Auto) [place] # Seg Neutrophils % Seg Neutrophils # PT INR POC ABG pH 7.460 H POC ABG pCO2 32.3 L Sodium Potassium Chloride Carbon Dioxide BUN Creatinine Glucose POC Glucose Lactic Acid Calcium Magnesium AST Total Creatine Kinase CK-MB (CK-2) Urine WBC (Auto) Salicylates < 0.3 L Acetaminophen < 5.0 L 10/03/17 10/03/17 10/03/17 01:39 04:25 04:25 WBC 19.6 H RDW 12.5 L Plt Count Lymph % (Auto) [place] % (Auto) 9.4 H [place] # 1.8 H Seg Neutrophils % 74.2 H Seg Neutrophils # 14.5 H PT INR POC ABG pH POC ABG pCO2 Sodium 154 H Potassium Chloride 118.0 H Carbon Dioxide 21 L BUN 25 H Creatinine Glucose 117 H POC Glucose Lactic Acid Calcium 8.1 L Magnesium AST Total Creatine Kinase 5392 H CK-MB (CK-2) 40.1 H Urine WBC (Auto) Salicylates Acetaminophen 10/03/17 10/03/17 10/03/17 11:46 13:00 17:02 WBC RDW Plt Count Lymph % (Auto) [place] % (Auto) [place] # Seg Neutrophils % Seg Neutrophils # PT INR POC ABG pH POC ABG pCO2 Sodium Potassium Chloride Carbon Dioxide BUN Creatinine Glucose POC Glucose 117 H 106 H Lactic Acid Calcium Magnesium AST Total Creatine Kinase 3884 H CK-MB (CK-2) 21.0 H Urine WBC (Auto) Salicylates Acetaminophen 10/04/17 10/04/17 10/04/17 05:40 15:32 21:26 WBC RDW Plt Count Lymph % (Auto) [place] % (Auto) [place] # Seg Neutrophils % Seg Neutrophils # PT INR POC ABG pH POC ABG pCO2 Sodium Potassium 3.4 L Chloride Carbon Dioxide BUN 5 L Creatinine 0.6 L Glucose POC Glucose 110 H 116 H Lactic Acid Calcium Magnesium AST Total Creatine Kinase CK-MB (CK-2) Urine WBC (Auto) Salicylates Acetaminophen 10/05/17 10/05/17 10/05/17 05:23 05:23 12:17 WBC 12.2 H RDW 12.5 L Plt Count Lymph % (Auto) [place] % (Auto) [place] # Seg Neutrophils % Seg Neutrophils # PT INR POC ABG pH POC ABG pCO2 Sodium 135 L Potassium 3.0 L Chloride 96.2 L Carbon Dioxide BUN 4 L Creatinine 0.5 L Glucose 107 H POC Glucose 136 H Lactic Acid Calcium 8.3 L Magnesium AST Total Creatine Kinase CK-MB (CK-2) Urine WBC (Auto) Salicylates Acetaminophen 10/06/17 10/06/17 10/07/17 00:00 16:22 03:23 WBC RDW Plt Count Lymph % (Auto) [place] % (Auto) [place] # Seg Neutrophils % Seg Neutrophils # PT INR POC ABG pH POC ABG pCO2 Sodium Potassium Chloride Carbon Dioxide BUN Creatinine Glucose POC Glucose 112 H 123 H 126 H Lactic Acid Calcium Magnesium AST Total Creatine Kinase CK-MB (CK-2) Urine WBC (Auto) Salicylates Acetaminophen 10/07/17 10/07/17 10/08/17 14:58 21:36 05:50 WBC RDW Plt Count Lymph % (Auto) [place] % (Auto) [place] # Seg Neutrophils % Seg Neutrophils # PT INR POC ABG pH POC ABG pCO2 Sodium Potassium 3.0 L Chloride 94.4 L Carbon Dioxide 32 H D BUN 5 L Creatinine 0.5 L Glucose 111 H POC Glucose 114 H Lactic Acid Calcium Magnesium AST Total Creatine Kinase 451 H CK-MB (CK-2) Urine WBC (Auto) Salicylates Acetaminophen 10/08/17 10/08/17 07:00 16:34 WBC RDW Plt Count Lymph % (Auto) [place] % (Auto) [place] # Seg Neutrophils % Seg Neutrophils # PT INR POC ABG pH POC ABG pCO2 Sodium Potassium Chloride Carbon Dioxide BUN Creatinine Glucose POC Glucose 130 H 114 H Lactic Acid Calcium Magnesium AST Total Creatine Kinase CK-MB (CK-2) Urine WBC (Auto) Salicylates Acetaminophen Allied health notes reviewed: nursing
[2017-10-09] MEDS: D5W 1,000 ML IV SCH ×2 (02:20→10:04)
[2017-10-09 09:12] VITALS: BP 119/83
[2017-10-09] MEDS: LOVENOX SUB-Q SCH (10:04)
--- NOTE | 2017-10-09 10:53 | Discharge Summary ---
Providers - Providers Date of Admission: 10/02/17 23:48 Attending physician: LILLIE YUSUF MD 10/02/17 23:26 Consult to Physician [CONS] Urgent Comment: Consulting Provider: BALWINDER BELTRAN Physician Instructions: Reason For Exam: nms 10/03/17 09:36 Consult to Physician [CONS] Routine Comment: Consulting Provider: JENNI GALAN Physician Instructions: Reason For Exam: AMS Consult to Physician [CONS] Routine Comment: Consulting Provider: HERB GARCIA Physician Instructions: Reason For Exam: AMS, SCHIZOPHERNIA 10/04/17 11:55 Consult to Dietitian/Nutrition [CONS] Routine Physician Instructions: Reason For Exam: Reason for Consult: Write/Manage Tube Feeding 10/06/17 06:59 Consult to Mental Health [CONS] Routine Reason For Exam: schizohrenia Place consult to:: mental health Notified:: Phone number called:: [phone] Was contact made?: Yes If yes, spoke with:: julius Time called:: 08:20 10/07/17 11:55 Speech Therapy Evaluation and Treat [CONS] Routine Reason For Exam: swallow eval Primary care physician: MEDICAL CONSULTANT Hospitalization Reason for admission: AMS Condition: Stable Hospital course: 52 year old woman with bipolar, schizophrenia was brought to the ER for evaluation of altered mental status. No further history is available. A lumbar puncture was done and the patient was treat empirically for meningitis and possible NMS, but discontinued after serology did not prove to show meningitis. Discussion with the family member reported that patient has been in [facility] due to schizophrenia and bipolar disorder. She was seen by neurology no evidence of seizure was noted. Symptoms has improved. Today she passed a swallowing eval. patient continued to improve was seen by neurology as noted above. It appeared that there may have been another seizure while monitoring the patient EEG again was normal. The second event of seizure may be secondary to benzo withdrawal as patient had not been getting the benzodiazepine. She improved back to her baseline level at times nonverbal at times which I believe is secondary to her schizophrenia. She was seen by electronic court recorder she was treated with antibiotics and currently is improved. Psychiatry did see her but some adjustments to her psych medications. Recommended the patient follows up at the clinic at [place] on discharge and this was discussed daughter Leonela Kingsley. Discharge diagnosis Seizure Acute Encephalopathy Unkown Etiology Acute cystitis SIRS Hypernatermia Rhabdomlysis Bipolar disorder Alf Resident Undifferentiated Schizophrenia Disposition: DC/[place]-03 [facility] CERT Time spent for discharge: 35 MINS Core Measure Documentation - Palliative Care Palliative Care/ Comfort Measures: Not Applicable - Core Measures Any of the following diagnoses?: none - VTE Discharge Requirements Deep Vein Thrombosis/Pulmonary Embolism Present on Admission: No Exam - Physical Exam Narrative exam: Gen. appearance: Patient lying in bed, no apparent distress HEENT: Normocephalic, atraumatic, pupils equally round and reactive to light, pinpoint, unable to do extraocular movement, and no sclericterus,. No JVD or thyromegaly or nodule,neck supple, no carotid bruit ,mucous membranes moist, no exudate or erythema Heart: S1, S2, regular rate and rhythm Lungs: Clear anteriorly bilaterally, breathing comfortable Abdomen: Positive bowel sounds, soft, nondistended, no organomegaly Extremity:no edema, cyanosis, clubbing Neuro: Lathergic - Constitutional Vitals: Temp Pulse Resp BP Pulse Ox 98.0 F 70 16 119/83 97 10/09/17 07:41 10/09/17 00:00 10/09/17 07:41 10/09/17 07:41 10/09/17 00:00 Plan Activity: advance as tolerated, no driving until cleared by PCP, fall precautions Diet: advance as tolerated Follow up with: PRIMARY CARE,MD [Primary Care Provider] - 3-5 Days Prescriptions: LORazepam [Ativan] 0.5 mg PO QHS #30 tab risperiDONE [RisperDAL] 1 mg PO BID #60 tablet
[2017-10-09] MEDS ORDERED: POTASSIUM CHLORIDE FEEDTUBE ONE (12:00)
--- NOTE | 2017-10-09 15:53 | Progress Note ---
Subjective - Reason for Consult Consult date: 10/09/17 Reason for consult: Psychiatric Follow-up Evaluation - Chief Complaint Chief complaint: "AMS" Patient is a 52-year-old female seen on the medical floor. She was brought to the hospital by ambulance for altered mental status. She lives in [facility] since July,. Today the patient is calm, but still confused during the assessment. Patient is selectively mute. Nonverbal. She only stares at provider. Answer questions inappropriately. Patient later seen talking to self. Per the staff, no behavioral disturbances overnight by the patient. No agitation noted/reported. Mental Status Exam - Vital signs Last Vital Signs Temp 98.0 F 10/09/17 07:41 Pulse 70 10/09/17 00:00 Resp 16 10/09/17 07:41 BP 119/83 10/09/17 07:41 Pulse Ox 97 10/09/17 00:00 - Exam Narrative exam: The MSE could not be completed at this time because of the patient's condition. Assessment and Plan Impression: Schizophrenia per history. Today the patient is calm, but confused during the assessment. The patient isn't in restraints, but have on mittens. Patient does not respond appropriately to questions. Patient stares at provider. Medical diagnoses: Acute Encephalopathy, SIRS, Rhabdomyolysis, and Hypernatremia. Recommendations/Plan: Continue 1. Continue Risperdal 1 mg PO BID and Ativan 0.5 mg PO HS as ordered by the medical provider. 2. Treat underlying medical conditions. 3. Psych will monitor mental status daily. 4. The patient can follow up at [facility] once discharged per her daughter Leonela Luong. Recommend Delirium precautions below: 1. Frequently reorient patient and involve him/her in their care (simple explanations of procedures, tests, medications). 2. Lights on and shades open during daytime hours. 3. Write date and goals of care in a visible place. 4. Try to avoid unnecessary interruptions to sleep during nighttime hours. 5. Obtain glasses, hearing aids from home if patient uses these at baseline. 6. Avoid medications that may exacerbate delirium (especially narcotics, benzodiazepines, barbiturates, ambien, lunesta, and medications with excessive anticholinergic properties). Ativan 0.5 mg PO HS is ordered by the medical staff. Continuing the current regimen is recommended since she is reported to be improving, it's a home medication, and to prevent benzo withdrawals.
== END 2017-10-09 18:53 | disposition home or self-care (01) | DRG 557 ==
LOC: ED 20:03 → CC1 23:48 → 3A 10-04 16:41
PROVIDERS: ADMIT Internal Medicine; ATTEND Internal Medicine
PROC: 4A033R1 Measurement of Arterial Saturation, Peripheral, Percutaneous Approach (ICD-10-PCS; principal; 2017-10-02)
DX: M62.82 Rhabdomyolysis (principal); G93.40 Encephalopathy, unspecified; R65.10 Systemic inflammatory response syndrome (SIRS) of non-infectious origin without acute organ dysfunction; E87.0 Hyperosmolality and hypernatremia; N30.00 Acute cystitis without hematuria; F31.9 Bipolar disorder, unspecified; E78.5 Hyperlipidemia, unspecified; I11.0 Hypertensive heart disease with heart failure; D72.829 Elevated white blood cell count, unspecified; F17.200 Nicotine dependence, unspecified, uncomplicated; R41.0 Disorientation, unspecified; R00.0 Tachycardia, unspecified; R56.9 Unspecified convulsions; F20.3 Undifferentiated schizophrenia; Z82.49 Family history of ischemic heart disease and other diseases of the circulatory system; Z83.3 Family history of diabetes mellitus
CPT/HCPCS: 36415; 70450; 71045; 74018; 74176; 80048; 80053; 80178; 80320; 81001; 82140; 82550; 82553; 82803; 82805; 82947; 82962; 83735; 84160; 84484; 85025; 85027; 85610; 85652; 86140; 86403; 86592; 87040; 87086; 87116; 89051; 93005; 93010; 95819; 96361; 96365; 96367; 96375; G0480; J0133; J0515; J0696; J1100; J1650; J2060; J2543; J2704; J3370; J7030; J7040; J7050; J7070